=== PATIENT | male | born 1955 | race Caucasian/White ===

== ENCOUNTER 2016-07-20 11:00 | Inpatient (IN) | payer BC ==
[~2016-07-20 11:00] MED LIST: Lactated Ringers 1,000 ML IV SCH; Lidocaine 1%/Sod Bicarbonate in NS 8.4% 1 ML Syringe IV PRN; Sodium Chloride 0.9% 10 ML Syringe FLUSH PRN
[2016-07-20] MEDS ORDERED: fentaNYL 100 MCG/2 ML SDV ONE (11:25)
[2016-07-20] MEDS ORDERED: Midazolam 1 MG/ML 2 ML SDV ONE (11:25)
[2016-07-20] MEDS ORDERED: Sodium Chloride 0.9% 10 ML ONE (11:25)
[2016-07-20] MEDS ORDERED: Morphine PF 10 MG/10 ML SDV ONE (11:26)
--- NOTE | 2016-07-20 13:23 | PCM.PREANE ---
Preanesthetic Assessment - ANESTHESIA/TRANSFUSION/FAMILY HX Anesthesia/Transfusion History: No Prior Transfusion(s), Prior Anesthesia (no prob) Family History of Anesthesia Reaction: No - REVIEW OF SYSTEMS Constitutional: Reports: no symptoms, feeling ill (influenza a 3 weeks ago) MARKETING STRATEGY ANALYST: Reports: no symptoms Respiratory: Reports: no symptoms Cardiovascular: Reports: no symptoms GI: Reports: no symptoms Other: Reports: none - PHYSICAL ASSESSMENT O2 Sat by Pulse Oximetry: 94 RR: 16 Vital Signs: Last Vital Signs Temp 98.2 F 07/20/16 12:00 Pulse 58 L 07/20/16 12:00 Resp 16 07/20/16 12:00 BP 118/77 07/20/16 12:00 Pulse Ox 94 L 07/20/16 12:00 Height: 5 ft 10 in Weight: 100.698 kg NPO Status Date: 07/19/16 NPO Status Time: 21:00 ASA Class: 2 Mental Status: alert & oriented x3 Dentition: Reports: partial (on top) Thyro-Mental Finger Breadths: 3 Mouth Opening Finger Breadths: 3 ROM/Head Extension: full Respiratory Status: lungs clear to auscultation bilaterally, diminished breath sounds Cardiovascular Status: regular rate & rhythm, normal S1, S2, no murmur, blood pressure WNL - LAB Values: Laboratory Last Values MRSA (PCR) Negative 07/08/16 11:50 Lab values reviewed. [place] CRNa07/06/16 Hgb 15.2 Hct 43.3 Plt 299 BUN14 Cr.06 - ALLERGIES Allergies/Adverse Reactions: Allergies Allergy/AdvReac Type Severity Reaction Status Date / Time No Known Allergies Allergy Verified 07/17/16 12:39 - BLOOD Blood Available: No - ANESTHESIA PLAN Preop Beta Martha: No Anesthesia Type Planned: spinal - ACKNOWLEDGEMENTS Pt an appropriate candidate for the planned anesthesia: Yes Alternatives and risks of anesthesia discussed w pt/guardian: Yes Pt/Guardian understands and agree with anesthesia plan: Yes PreAnesthesia Questionnaire HEENT History: Reports: Hard of hearing, Sinusitis (a few weeks ago with the flu ) Other HEENT History: wears hearing aids and glasses Cardiovascular History: Reports: None Respiratory History: Reports: None Gastrointestinal History: Reports: None Genitourinary History: Reports: None Musculoskeletal History: Reports: Other (see below) Other Musculoskeletal History: Clavicle fracture Neurological History: Reports: None Psychiatric History: Reports: None Endocrine/Metabolic History: Reports: Vitamin D deficiency Hematologic History: Reports: None Immunologic History: Reports: None Oncologic (Cancer) History: Reports: None Dermatologic History: Reports: None - Infectious Disease History Infectious Disease History: Reports: None - Past Surgical History Head Surgeries/Procedures: HEENT Surgical History: Reports: None Cardiovascular Surgical History: Reports: None Respiratory Surgical History: Reports: None GI Surgical History: Reports: None Male Surgical History: Reports: None Endocrine Surgical History: Reports: None Neurological Surgical History: Reports: Lumbar spine Musculoskeletal Surgical History: Reports: Other (see below) Other Musculoskeletal Surgeries/Procedures:: Clavicle Repair Oncologic Surgical History: Reports: None Dermatological Surgical History: Reports: None - SUBSTANCE USE Smoking Status *Q: Former Smoker (quit 1985) Tobacco Use Within Last Twelve Months: No Second Hand Smoke Exposure: No Days Per Week of Alcohol Use: 2 Number of Drinks Per Day: 5 Total Drinks Per Week: 10 Date of Last Drink: 07/14/16 Recreational Drug Use History: No - HOME MEDS Home Medications: Home Meds Ergocalciferol (Vitamin D2) [Vitamin D2] 50,000 unit PO ASDIRECTED 07/17/16 [ History] - CURRENT (IN HOUSE) MEDS Current Meds: Current Medications Morphine Sulfate 8 mg/Epinephrine HCl 0.3 mg/Cefuroxime Sodium 750 mg/Ketorolac Tromethamine 30 mg/Sodium Chloride 27.9 ml 0 mg .XX ONETIME ONE Stop: 07/20/16 13:31 Lactated Ringer's (Ringers, Lactated) 1,000 mls @ 125 mls/hr IV ASDIRECTED [facility] Last Admin: 07/20/16 12:30 Dose: 125 mls/hr Lidocaine/Sodium Bicarbonate (Buffered Lidocaine 1% In Ns 8.4%) 0.25 ml IV ONETIME PRN PRN Reason: Prior to IV Start Last Admin: 07/20/16 12:29 Dose: 0.25 ml Sodium Chloride (Saline Flush) 10 ml FLUSH ASDIRECTED PRN PRN Reason: Keep Vein Open Discontinued Medications Cefazolin Sodium (Ancef) Confirm Administered Dose 2 gm .ROUTE .STK-MED ONE Stop: 07/20/16 11:26 Fentanyl (Sublimaze) Confirm Administered Dose 100 mcg .ROUTE .STK-MED ONE Stop: 07/20/16 11:26 Sodium Chloride (Normal Saline) Confirm Administered Dose 10 mls @ as directed .ROUTE .STK-MED ONE Stop: 07/20/16 11:26 Midazolam HCl (Versed 1 Mg/Ml) Confirm Administered Dose 2 mg .ROUTE .STK-MED ONE Stop: 07/20/16 11:26 Morphine Sulfate (Duramorph Pf) Confirm Administered Dose 10 mg .ROUTE .STK-MED ONE Stop: 07/20/16 11:27
[2016-07-20] MEDS ORDERED: ceFAZolin 1 GM Vial ONE (13:41)
[2016-07-20] MEDS ORDERED: Propofol 200 MG/20 ML SDV ONE ×2 (14:55→15:18)
[2016-07-20] MEDS: Iodine/Sodium Iodide 2% Tincture 30 ML Bottle ONE ×2 (15:23→15:58)
[2016-07-20] MEDS: Bupivacaine 0.25% 30 ML SDV ONE ×2 (15:23→16:06)
[2016-07-20] MEDS: ceFAZolin 1 GM Vial ONE ×2 (15:23→16:02)
[2016-07-20] MEDS: Morphine 8 MG, EPINEPHrine 0.3 MG, Cefuroxime 750 MG, Ketorolac 30 MG, Sodium Chloride ... ONE ×10 (15:24→16:05)
[2016-07-20] MEDS ORDERED: diphenhydrAMINE 50 MG/ML SDV IVPUSH PRN (15:49)
[2016-07-20] MEDS ORDERED: fentaNYL 100 MCG/2 ML SDV IVPUSH PRN (15:49)
[2016-07-20] MEDS ORDERED: Lactated Ringers 1,000 ML ONE ×2 (15:49→16:14)
[2016-07-20] MEDS ORDERED: Meperidine PF 50 MG/ML Syringe IVPUSH PRN (15:49)
[2016-07-20] MEDS ORDERED: Ondansetron 4 MG/2 ML SDV IVPUSH PRN (15:49)
[2016-07-20] MEDS ORDERED: Ondansetron 4 MG/2 ML SDV ONE (16:38)
--- NOTE | 2016-07-20 16:47 | PCM.POSTAN ---
POST ANESTHESIA ASSESSMENT - MENTAL STATUS Mental Status: alert - VITAL SIGNS Pulse Rate: 50 SaO2: 94 Resp Rate: 16 Blood Pressure: 114/68 Temperature: 36.1 C - RESPIRATORY Respiratory Status: respiratory rate WNL, airway patent, O2 saturation stable - CARDIOVASCULAR CV Status: pulse rate WNL, blood pressure stable - GASTROINTESTINAL GI Status: no symptoms - POST OP HYDRATION Hydration Status: adequate & stable
[2016-07-20] MEDS ORDERED: Cyclobenzaprine 10 MG Tab PO PRN (16:48)
[2016-07-20] MEDS ORDERED: Sennosides 8.6 MG Tab PO PRN (16:48)
[2016-07-20] MEDS ORDERED: Magnesium Hydroxide 400 MG/5 ML Susp 30 ML Cup PO PRN (16:48)
[2016-07-20] MEDS ORDERED: Naloxone 0.4 MG/ML SDV IVPUSH PRN (16:48)
[2016-07-20] MEDS ORDERED: oxyCODONE 5 MG Tab PO PRN (16:48)
[2016-07-20] MEDS ORDERED: Bisacodyl 5 MG Tab PO PRN (16:48)
[2016-07-20] MEDS ORDERED: Morphine 2 MG/ML Syringe IVPUSH PRN (16:48)
[2016-07-20] MEDS ORDERED: Pneumococcal Polyvalent-23 Vaccine 0.5 ML SDV IM ONE (18:12)
--- NOTE | 2016-07-20 19:13 | PCM.CONS ---
H&P History of Present Illness - General Date of Service: 07/20/16 Admit Problem/Dx: Admission Diagnosis/Problem Admission Diagnosis/Problem Osteoarthritis of knee Source of Information: Patient, Old records, Provider, RN notes reviewed History Limitations: Reports: Physical impairment - History of Present Illness Initial Comments - Free Text/Narative: This is a 61-year-old, white male, with past medical history of Hearing Loss, Backache, Obesity with BMI 31.9, OA/DJD and Obesity who underwent left total knee arthroplasty post operative day zero. Patient is doing relatively well. Currently, his pain is controlled. He denies any acute issues. Medicine was consulted for postoperative care. Left Knee Pain Score (Numeric/FACES): 0 - Related Data Allergies/Adverse Reactions: Allergies Allergy/AdvReac Type Severity Reaction Status Date / Time No Known Allergies Allergy Verified 07/17/16 12:39 Home Medications: Home Meds Ergocalciferol (Vitamin D2) [Vitamin D2] 50,000 unit PO ASDIRECTED 07/17/16 [ History] Past Medical History HEENT History: Reports: Hard of hearing, Sinusitis Other HEENT History: wears hearing aids and glasses Cardiovascular History: Reports: None Respiratory History: Reports: None Gastrointestinal History: Reports: None Genitourinary History: Reports: None Musculoskeletal History: Reports: Other (see below) Other Musculoskeletal History: Clavicle fracture Neurological History: Reports: None Psychiatric History: Reports: None Endocrine/Metabolic History: Reports: Vitamin D deficiency Hematologic History: Reports: None Immunologic History: Reports: None Oncologic (Cancer) History: Reports: None Dermatologic History: Reports: None - Infectious Disease History Infectious Disease History: Reports: Chicken pox, Influenza, Measles, Mumps - Past Surgical History HEENT Surgical History: Reports: None Cardiovascular Surgical History: Reports: None Respiratory Surgical History: Reports: None GI Surgical History: Reports: None Male Surgical History: Reports: None Endocrine Surgical History: Reports: None Neurological Surgical History: Reports: Lumbar spine Musculoskeletal Surgical History: Reports: Other (see below) Other Musculoskeletal Surgeries/Procedures:: Clavicle Repair, and ruptured a disc Oncologic Surgical History: Reports: None Dermatological Surgical History: Reports: None Social & Family History - Family History Family Medical History: Noncontributory - Tobacco Use Smoking Status *Q: Former Smoker Years of Tobacco use: 12 Packs/Tins Daily: 0.5 Used Tobacco, but Quit: Yes Month Tobacco Last Used: 1985 Second Hand Smoke Exposure: No - Caffeine Use Caffeine Use: Reports: Coffee Other Caffeine Use: couple - Alcohol Use Days Per Week of Alcohol Use: 2 Number of Drinks Per Day: 0 Total Drinks Per Week: 0 Date of Last Drink: 07/14/16 - Recreational Drug Use Recreational Drug Use: No H&P Review of Systems - Review of Systems: Review Of Systems: See Below General: Denies: fever, chills, malaise, weakness, fatigue HEENT: Reports: no symptoms Pulmonary: Denies: cough Cardiovascular: Denies: chest pain, palpitations, dyspnea on exertion, edema, lightheadedness, syncope Gastrointestinal: Denies: Abdominal pain, Nausea, Vomiting Genitourinary: Reports: no symptoms Musculoskeletal: Reports: no symptoms Skin: Denies: cyanosis, pruritis, rash, erythema Psychiatric: Denies: depression, anxiety, hallucinations Neurological: Reports: difficulty walking, gait disturbance. Denies: confusion Hematologic/Lymphatic: Reports: no symptoms Immunologic: Reports: no symptoms Exam - Exam Exam: See Below - Vital Signs Vital Signs: Last Vital Signs Temp 36.4 C 07/20/16 18:45 Pulse 56 L 07/20/16 18:45 Resp 16 07/20/16 18:45 BP 129/74 07/20/16 18:45 Pulse Ox 99 07/20/16 18:45 Weight: 100.698 kg - Exam General: alert, oriented, cooperative. No: mild distress HEENT: Conjunctiva clear, EACs clear, EOMI, Hearing intact, Mucosa moist & pink , Nares patent, Normal nasal septum, Posterior pharynx clear, PERRLA Neck: supple, trachea midline, 2+ carotid pulse wo bruit, full range of motion. No: JVD Lungs: Clear to auscultation, Normal respiratory effort Cardiovascular: regular rate, regular rhythm Abdomen: normal bowel sounds, soft. No: organomegaly (Male) Exam: Other (indwelling montano catheter) Rectal (Males) Exam: Deferred Back Exam: normal inspection, decreased range of motion Extremities: normal inspection, normal pulses. No: clubbing, cyanosis, calf tenderness, edema Peripheral Pulses: 2+: dorsalis pedis (L), dorsalis pedis (R) Skin: warm, dry, intact Neuro Extensive - Mental Status: oriented x3, normal cognition, memory intact Neuro Extensive - Motor, Sensory, Reflexes: abnormal gait. No: CN II-XII intact (fairly intact) Psychiatric: alert, normal affect, normal mood Consult PN Assessment/Plan POD#: 0 Procedures: Procedures C-REACTIVE PROTEIN (06/21/16) CHEST X-RAY 2VW FRONTAL&LATL (06/21/16) COMPLETE CBC W/AUTO DIFF WBC (06/21/16) COMPREHEN METABOLIC PANEL (06/21/16) CULTURE SCREEN ONLY (06/21/16) ELECTROCARDIOGRAM TRACING (06/21/16) EMERGENCY DEPT VISIT (06/21/16) HYDRATE IV INFUSION ADD-ON (06/21/16) HYDRATION IV INFUSION INIT (06/21/16) INFLUENZA ASSAY W/OPTIC (06/21/16) ROUTINE VENIPUNCTURE (06/21/16) STREP A AG IA (06/21/16) X-RAY EXAM OF WRIST (01/04/14) Problem List Initiated/Reviewed/Updated: Yes Plan: Assessment: Acute: Post-Operative Care State - Stable - Continue to monitor for hemodynamic instability S/p Left Total Knee Arthroplasty - Stable - DVT and Pain Management as per primary team Hx/o Chronic OA/DJD - Pain Management as per primary team Chronic: Hearing Loss Backache Obesity with BMI 31.9 Plan: He is clinically stable Routine AM labs Continue home meds PT/OT consult IS q2 awake Thank you for the opportunity to participate in the management of this patient. Requesting Provider: Dr. Arreola Date Consult Requested: 07/20/16 Reason for Consult: Post-Operative Care Patient History Reviewed: Yes Admission H&P Reviewed: Yes Consult Result/Summary: Stable
--- NOTE | 2016-07-20 19:15 | CR ---
Left knee: AP and lateral views of the left knee were obtained. Comparison: Previous left knee MRI of 01/14 11 is available. Knee prosthesis is seen. Components are aligned. Lucent line is seen within the fibular head believed to be artifact from overlying soft tissue air. Underlying bony structures appear to be intact. Soft tissue air and air within the joint is seen secondary to the surgical procedure. Impression: 1. Satisfactory postop radiographic appearance of recently placed left knee prosthesis. Diagnostic code #2
[2016-07-20] MEDS: Docusate Sodium 100 MG Cap PO SCH (21:21)
[2016-07-20] MEDS: Famotidine 20 MG Tab PO SCH (21:21)
[2016-07-20] MEDS: ceFAZolin 2 GM in Premix Bag 1 BAG IV SCH (21:22)
[2016-07-21] MEDS: ceFAZolin 2 GM in Premix Bag 1 BAG IV SCH ×2 (04:10→13:31)
[2016-07-21] MEDS: Multivitamins,Therapeutic Tab PO SCH (06:34)
[2016-07-21] MEDS: Acetaminophen/oxyCODONE 325-5 MG Tab PO PRN ×4 (06:34→19:10)
--- NOTE | 2016-07-21 06:52 | PCM.CONSN ---
- General Info Date of Service: 07/21/16 Admission Dx/Problem (Free Text): Admission Diagnosis/Problem Admission Diagnosis/Problem Osteoarthritis of knee Subjective Update: Follow Up Functional Status: Reports: pain controlled, tolerating diet, ambulating, urinating. Denies: new symptoms - Review of Systems General: Denies: fever, weakness, fatigue, malaise, chills HEENT: Reports: no symptoms Pulmonary: Denies: shortness of breath Cardiovascular: Denies: chest pain Gastrointestinal: Reports: Nausea, Vomiting. Denies: Abdominal pain Genitourinary: Reports: no symptoms Musculoskeletal: Reports: no symptoms Skin: Denies: bruising, pruritis, rash Neurological: Denies: confusion Psychiatric: Denies: depression, anxiety, hallucinations Systems Review Comment:: No overnight issues. He is nauseous and vomited x1. He has no other acute issues. - Patient Data Vitals - most recent: Last Vital Signs Temp 36.8 C 07/21/16 04:04 Pulse 56 L 07/21/16 04:04 Resp 15 07/21/16 04:04 BP 106/78 07/21/16 04:04 Pulse Ox 95 07/21/16 04:04 Weight - most recent: 104.19 kg I&O - last 24 hours: Intake & Output 07/20/16 07/20/16 07/21/16 14:59 22:59 06:59 Intake Total 320 1938 Output Total 550 1000 Balance -230 938 Med Orders - Current: Current Medications Bisacodyl (Dulcolax) 5 mg PO DAILY PRN PRN Reason: Constipation Cyclobenzaprine HCl (Flexeril) 10 mg PO TID PRN PRN Reason: Spasms Docusate Sodium (Colace) 100 mg PO BID [facility] Last Admin: 07/20/16 21:21 Dose: 100 mg Ergocalciferol (Vitamin D2) 50,000 units PO WeSa@0900 [facility] Famotidine (Pepcid) 20 mg PO Q12H [facility] Last Admin: 07/20/16 21:21 Dose: 20 mg Cefazolin Sodium/Dextrose 2 gm (/ Premix) 50 mls @ 100 mls/hr IV Q8H [facility] Stop: 07/21/16 13:29 Last Admin: 07/21/16 04:10 Dose: 100 mls/hr Magnesium Hydroxide (Milk Of Magnesia) 30 ml PO BID PRN PRN Reason: Constipation Morphine Sulfate (Morphine) 2 mg IVPUSH Q2H PRN PRN Reason: Breakthrough Pain Multivitamins (Thera) 1 each PO WITHBREAKFAST [facility] Last Admin: 07/21/16 06:34 Dose: 1 each Oxycodone HCl (Oxycodone) 5 mg PO Q6H PRN PRN Reason: Pain Oxycodone/Acetaminophen (Percocet 325-5 Mg) 1 - 2 tab PO Q4H PRN PRN Reason: Pain Last Admin: 07/21/16 06:34 Dose: 2 tab Rivaroxaban (Xarelto) 10 mg PO DAILY [facility] Senna (Senna) 8.6 mg PO BID PRN PRN Reason: Constipation Discontinued Medications Bupivacaine HCl (Marcaine 0.25%) Confirm Administered Dose 30 ml .ROUTE .STK- MED ONE Stop: 07/20/16 13:42 Last Admin: 07/20/16 16:06 Dose: 30 ml Cefazolin Sodium (Ancef) Confirm Administered Dose 2 gm .ROUTE .STK-MED ONE Stop: 07/20/16 11:26 Last Admin: 07/20/16 16:02 Dose: 2 gm Cefazolin Sodium (Ancef) Confirm Administered Dose 2 gm .ROUTE .STK-MED ONE Stop: 07/20/16 13:42 Morphine Sulfate 8 mg/Epinephrine HCl 0.3 mg/Cefuroxime Sodium 750 mg/Ketorolac Tromethamine 30 mg/Sodium Chloride 27.9 ml 0 mg .XX ONETIME ONE Stop: 07/20/16 13:31 Last Admin: 07/20/16 16:05 Dose: 788.3 mg Diphenhydramine HCl (Benadryl) 25 mg IVPUSH Q6H PRN PRN Reason: pruritis Stop: 07/20/16 20:00 Fentanyl (Sublimaze) Confirm Administered Dose 100 mcg .ROUTE .STK-MED ONE Stop: 07/20/16 11:26 Fentanyl (Sublimaze) 50 mcg IVPUSH Q5M PRN PRN Reason: Pain Stop: 07/20/16 20:00 Lactated Ringer's (Ringers, Lactated) 1,000 mls @ 125 mls/hr IV ASDIRECTED [facility] Stop: 07/20/16 23:00 Last Infusion: 07/20/16 20:30 Dose: Infused Sodium Chloride (Normal Saline) Confirm Administered Dose 10 mls @ as directed .ROUTE .STK-MED ONE Stop: 07/20/16 11:26 Lactated Ringer's (Ringers, Lactated) Confirm Administered Dose 1,000 mls @ as directed .ROUTE .STK-MED ONE Stop: 07/20/16 15:50 Lactated Ringer's (Ringers, Lactated) Confirm Administered Dose 1,000 mls @ as directed .ROUTE .STK-MED ONE Stop: 07/20/16 16:15 Iodine (Iodine 2% Mild Tincture) Confirm Administered Dose 30 ml .ROUTE .STK- MED ONE Stop: 07/20/16 13:42 Last Admin: 07/20/16 15:58 Dose: 18 ml Lidocaine/Sodium Bicarbonate (Buffered Lidocaine 1% In Ns 8.4%) 0.25 ml IV ONETIME PRN PRN Reason: Prior to IV Start Stop: 07/20/16 18:00 Last Admin: 07/20/16 12:29 Dose: 0.25 ml Meperidine HCl (Demerol) 12.5 mg IVPUSH ONETIME PRN PRN Reason: shivering Stop: 07/21/16 15:50 Midazolam HCl (Versed 1 Mg/Ml) Confirm Administered Dose 2 mg .ROUTE .STK-MED ONE Stop: 07/20/16 11:26 Morphine Sulfate (Duramorph Pf) Confirm Administered Dose 10 mg .ROUTE .STK-MED ONE Stop: 07/20/16 11:27 Naloxone HCl (Narcan) 0.1 mg IVPUSH Q5M PRN PRN Reason: Oversedation Stop: 07/20/16 17:04 Ondansetron HCl (Zofran) 4 mg IVPUSH ONETIME PRN PRN Reason: Nausea/Vomiting Stop: 07/20/16 20:00 Ondansetron HCl (Zofran) Confirm Administered Dose 4 mg .ROUTE .STK-MED ONE Stop: 07/20/16 16:39 Pneumococcal Polyvalent Vaccine (Pneumovax 23) 0.5 ml IM .ONCE ONE Stop: 07/20/16 18:13 Propofol (Diprivan 20 Ml) Confirm Administered Dose 200 mg .ROUTE .STK-MED ONE Stop: 07/20/16 14:56 Propofol (Diprivan 20 Ml) Confirm Administered Dose 200 mg .ROUTE .STK-MED ONE Stop: 07/20/16 15:19 Sodium Chloride (Saline Flush) 10 ml FLUSH ASDIRECTED PRN PRN Reason: Keep Vein Open Stop: 07/20/16 18:00 Tranexamic Acid (Cyklokapron) Confirm Administered Dose 1,000 mg .ROUTE .STK- MED ONE Stop: 07/20/16 13:42 Last Admin: 07/20/16 16:14 Dose: 1,000 mg - Exam General: alert, oriented, cooperative, no acute distress HEENT: Pupils equal, Pupils reactive, EOMI, Mucous membr. moist/pink Neck: supple, trachea midline, no JVD Lungs: Clear to auscultation, Normal respiratory effort Cardiovascular: regular rate, regular rhythm Abdomen: bowel sounds present, soft, no tenderness, no distension (Male) Exam: Deferred Back Exam: normal inspection, decreased range of motion Extremities: no edema, normal pulses, no tenderness/swelling, no clubbing, no cyanosis, no calf tenderness Peripheral Pulses: 2+: dorsalis pedis (L), dorsalis pedis (R) Skin: warm, dry, intact Wound/Incisions: healing well, dressing dry and intact, no drainage Neurological: no new focal deficit Psy/Mental Status: alert, normal affect, normal mood Consult PN Assessment/Plan POD#: 1 Procedures: Procedures C-REACTIVE PROTEIN (06/21/16) CHEST X-RAY 2VW FRONTAL&LATL (06/21/16) COMPLETE CBC W/AUTO DIFF WBC (06/21/16) COMPREHEN METABOLIC PANEL (06/21/16) CULTURE SCREEN ONLY (06/21/16) ELECTROCARDIOGRAM TRACING (06/21/16) EMERGENCY DEPT VISIT (06/21/16) HYDRATE IV INFUSION ADD-ON (06/21/16) HYDRATION IV INFUSION INIT (06/21/16) INFLUENZA ASSAY W/OPTIC (06/21/16) ROUTINE VENIPUNCTURE (06/21/16) STREP A AG IA (06/21/16) X-RAY EXAM OF WRIST (01/04/14) Problem List Initiated/Reviewed/Updated: Yes Plan: Assessment: Acute: Post-Operative Care State - Stable - Continue to monitor for hemodynamic instability S/p Left Total Knee Arthroplasty - Stable - DVT and Pain Management as per primary team Hx/o Chronic OA/DJD - Pain Management as per primary team Nausea and Vomiting - PRN anti-emesis Chronic: Hearing Loss Backache Obesity with BMI 31.9 Plan: He remains clinically stable Routine AM labs Continue home meds, PT/OT, and IS q2 awake If not improvement of emesis, we will add scopolamine patch x 1
[2016-07-21] MEDS: Docusate Sodium 100 MG Cap PO SCH ×2 (08:04→20:27)
[2016-07-21] MEDS: Famotidine 20 MG Tab PO SCH ×2 (08:04→21:29)
--- NOTE | 2016-07-21 08:17 | PCM48HPAN ---
Post Anesthesia Note - EVALUATION WITHIN 48HRS OF ANESTHETIC Vital Signs in Normal Range: Yes Patient Participated in Evaluation: Yes Respiratory Function Stable: Yes Airway Patent: Yes Cardiovascular Function Stable: Yes Hydration Status Stable: Yes Pain Control Satisfactory: Yes Nausea and Vomiting Control Satisfactory: Yes Mental Status Recovered: Yes
[2016-07-21] MEDS: Rivaroxaban 10 MG Tab PO SCH (08:58)
[2016-07-21] MEDS ORDERED: Ondansetron 4 MG/2 ML SDV IVPUSH PRN (09:56)
[2016-07-21] MEDS ORDERED: Rivaroxaban 10 MG Tab PO ONE (14:00)
--- NOTE | 2016-07-21 17:37 | PCM.SURGPN ---
- General Info Date of Service: 07/21/16 POD#: 1 Functional Status: Reports: pain controlled, tolerating diet, ambulating, urinating, other (Pt has had nausea, vomiting today.) - Patient Data Vitals - most recent: Last Vital Signs Temp 99.3 F 07/21/16 15:49 Pulse 73 07/21/16 15:49 Resp 17 07/21/16 15:49 BP 122/59 L 07/21/16 15:49 Pulse Ox 92 L 07/21/16 15:49 Weight - most recent: 229 lb 11.2 oz I&O - last 24 hours: Intake & Output 07/21/16 07/21/16 07/21/16 06:59 14:59 22:59 Intake Total 1938 20 170 Output Total 1000 125 Balance 938 -105 170 Lab Results last 24 hrs: Laboratory Results - last 24 hr 07/21/16 07/21/16 Range/Units 06:15 06:15 WBC 10.02 H (4.23-9.07) K/mm3 RBC 4.03 L (4.63-6.08) M/mm3 Hgb 12.8 L (13.7-17.5) gm/L Hct 38.6 L (40.1-51.0) % MCV 95.8 H (79.0-92.2) fl MCH 31.8 (25.7-32.2) pg MCHC 33.2 (32.2-35.5) g/dl RDW Std Deviation 44.3 H (35.1-43.9) fL Plt Count 219 (163-337) K/mm3 MPV 12.1 (9.4-12.3) fl Neut % (Auto) 80.0 H (34.0-67.9) % Lymph % (Auto) 11.1 L (21.8-53.1) % [place] % (Auto) 7.8 (5.3-12.2) % Eos % (Auto) 0.7 L (0.8-7.0) Baso % (Auto) 0.2 (0.1-1.2) % Neut # 8.02 H (1.78-5.38) K/mm3 Lymph # 1.11 L (1.32-3.57) K/mm3 [place] # 0.78 (0.30-0.82) K/mm3 Eos # 0.07 (0.04-0.54) K/mm3 Baso # 0.02 (0.01-0.08) K/mm3 Sodium 137 (136-145) mEq/L Potassium 4.2 (3.5-5.1) mEq/L Chloride 102 (98-107) mEq/L Carbon Dioxide 26 (21-32) mEq/L Anion Gap 13.2 (5-15) BUN 14 (7-18) mg/dL Creatinine 0.8 (0.7-1.3) mg/dL Est Cr Clr Drug Dosing 98.85 mL/min Estimated GFR (MDRD) > 60 (>60) mL/min BUN/Creatinine Ratio 17.5 (14-18) Glucose 101 (80-115) mg/dL Calcium 8.6 (8.5-10.1) mg/dL Total Bilirubin 1.2 H (0.2-1.0) mg/dL AST 20 (15-37) U/L ALT 31 (16-63) U/L Alkaline Phosphatase 77 (46-116) U/L Total Protein 6.5 (6.4-8.2) g/dl Albumin 3.3 L (3.4-5.0) g/dl Globulin 3.2 gm/dL Albumin/Globulin Ratio 1.0 (1-2) Med Orders - Current: Current Medications Bisacodyl (Dulcolax) 5 mg PO DAILY PRN PRN Reason: Constipation Cyclobenzaprine HCl (Flexeril) 10 mg PO TID PRN PRN Reason: Spasms Docusate Sodium (Colace) 100 mg PO BID [facility] Last Admin: 07/21/16 08:04 Dose: 100 mg Ergocalciferol (Vitamin D2) 50,000 units PO WeSa@0900 [facility] Famotidine (Pepcid) 20 mg PO Q12H [facility] Last Admin: 07/21/16 08:04 Dose: 20 mg Magnesium Hydroxide (Milk Of Magnesia) 30 ml PO BID PRN PRN Reason: Constipation Morphine Sulfate (Morphine) 2 mg IVPUSH Q2H PRN PRN Reason: Breakthrough Pain Multivitamins (Thera) 1 each PO WITHBREAKFAST [facility] Last Admin: 07/21/16 06:34 Dose: 1 each Ondansetron HCl (Zofran) 4 mg IVPUSH Q4HR PRN PRN Reason: Nausea/Vomiting Last Admin: 07/21/16 10:10 Dose: 4 mg Oxycodone HCl (Oxycodone) 5 mg PO Q6H PRN PRN Reason: Pain Oxycodone/Acetaminophen (Percocet 325-5 Mg) 1 - 2 tab PO Q4H PRN PRN Reason: Pain Last Admin: 07/21/16 15:09 Dose: 2 tab Rivaroxaban (Xarelto) 10 mg PO DAILY [facility] Last Admin: 07/21/16 08:58 Dose: 10 mg Senna (Senna) 8.6 mg PO BID PRN PRN Reason: Constipation Discontinued Medications Bupivacaine HCl (Marcaine 0.25%) Confirm Administered Dose 30 ml .ROUTE .STK- MED ONE Stop: 07/20/16 13:42 Last Admin: 07/20/16 16:06 Dose: 30 ml Cefazolin Sodium (Ancef) Confirm Administered Dose 2 gm .ROUTE .STK-MED ONE Stop: 07/20/16 11:26 Last Admin: 07/20/16 16:02 Dose: 2 gm Cefazolin Sodium (Ancef) Confirm Administered Dose 2 gm .ROUTE .STK-MED ONE Stop: 07/20/16 13:42 Morphine Sulfate 8 mg/Epinephrine HCl 0.3 mg/Cefuroxime Sodium 750 mg/Ketorolac Tromethamine 30 mg/Sodium Chloride 27.9 ml 0 mg .XX ONETIME ONE Stop: 07/20/16 13:31 Last Admin: 07/20/16 16:05 Dose: 788.3 mg Diphenhydramine HCl (Benadryl) 25 mg IVPUSH Q6H PRN PRN Reason: pruritis Stop: 07/20/16 20:00 Fentanyl (Sublimaze) Confirm Administered Dose 100 mcg .ROUTE .STK-MED ONE Stop: 07/20/16 11:26 Fentanyl (Sublimaze) 50 mcg IVPUSH Q5M PRN PRN Reason: Pain Stop: 07/20/16 20:00 Lactated Ringer's (Ringers, Lactated) 1,000 mls @ 125 mls/hr IV ASDIRECTED [facility] Stop: 07/20/16 23:00 Last Infusion: 07/20/16 20:30 Dose: Infused Sodium Chloride (Normal Saline) Confirm Administered Dose 10 mls @ as directed .ROUTE .STK-MED ONE Stop: 07/20/16 11:26 Lactated Ringer's (Ringers, Lactated) Confirm Administered Dose 1,000 mls @ as directed .ROUTE .STK-MED ONE Stop: 07/20/16 15:50 Lactated Ringer's (Ringers, Lactated) Confirm Administered Dose 1,000 mls @ as directed .ROUTE .STK-MED ONE Stop: 07/20/16 16:15 Cefazolin Sodium/Dextrose 2 gm (/ Premix) 50 mls @ 100 mls/hr IV Q8H [facility] Stop: 07/21/16 13:29 Last Admin: 07/21/16 13:31 Dose: 100 mls/hr Iodine (Iodine 2% Mild Tincture) Confirm Administered Dose 30 ml .ROUTE .STK- MED ONE Stop: 07/20/16 13:42 Last Admin: 07/20/16 15:58 Dose: 18 ml Lidocaine/Sodium Bicarbonate (Buffered Lidocaine 1% In Ns 8.4%) 0.25 ml IV ONETIME PRN PRN Reason: Prior to IV Start Stop: 07/20/16 18:00 Last Admin: 07/20/16 12:29 Dose: 0.25 ml Meperidine HCl (Demerol) 12.5 mg IVPUSH ONETIME PRN PRN Reason: shivering Stop: 07/21/16 15:50 Midazolam HCl (Versed 1 Mg/Ml) Confirm Administered Dose 2 mg .ROUTE .STK-MED ONE Stop: 07/20/16 11:26 Morphine Sulfate (Duramorph Pf) Confirm Administered Dose 10 mg .ROUTE .STK-MED ONE Stop: 07/20/16 11:27 Naloxone HCl (Narcan) 0.1 mg IVPUSH Q5M PRN PRN Reason: Oversedation Stop: 07/20/16 17:04 Ondansetron HCl (Zofran) 4 mg IVPUSH ONETIME PRN PRN Reason: Nausea/Vomiting Stop: 07/20/16 20:00 Ondansetron HCl (Zofran) Confirm Administered Dose 4 mg .ROUTE .STK-MED ONE Stop: 07/20/16 16:39 Pneumococcal Polyvalent Vaccine (Pneumovax 23) 0.5 ml IM .ONCE ONE Stop: 07/20/16 18:13 Propofol (Diprivan 20 Ml) Confirm Administered Dose 200 mg .ROUTE .STK-MED ONE Stop: 07/20/16 14:56 Propofol (Diprivan 20 Ml) Confirm Administered Dose 200 mg .ROUTE .STK-MED ONE Stop: 07/20/16 15:19 Rivaroxaban (Xarelto) 10 mg PO ONETIME ONE Stop: 07/21/16 14:01 Last Admin: 07/21/16 13:31 Dose: 10 mg Sodium Chloride (Saline Flush) 10 ml FLUSH ASDIRECTED PRN PRN Reason: Keep Vein Open Stop: 07/20/16 18:00 Tranexamic Acid (Cyklokapron) Confirm Administered Dose 1,000 mg .ROUTE .STK- MED ONE Stop: 07/20/16 13:42 Last Admin: 07/20/16 16:14 Dose: 1,000 mg - Exam Wound/Incisions: dressing dry and intact General: alert, cooperative, no acute distress Lungs: Normal respiratory effort Extremities: normal pulses, no calf tenderness, other (NVS intact for BLE. Jennifer's negative.) - Problem List Review Problem List Initiated/Reviewed/Updated: Yes - My Orders Last 24 Hours: Active Orders 24 hr Category Date Time Status Patient Status [ADT] Routine ADT 07/20/16 16:48 Active Ambulate [RC] PER UNIT ROUTINE Care 07/20/16 16:48 Active Antiembolic Devices [RC] QSHIFT Care 07/20/16 17:01 Active May Shower [RC] ASDIRECTED Care 07/20/16 16:48 Active Notify Provider Consults [RC] ASDIRECTED Care 07/20/16 17:02 Active Oxygen Therapy [RC] PRN Care 07/20/16 16:48 Active RT Incentive Spirometry [RC] Q1HWA Care 07/20/16 16:49 Active Up to Chair [RC] ASDIRECTED Care 07/20/16 16:48 Active Urinary Catheter Removal [RC] Per Unit Routine Care 07/20/16 16:48 Active VTE/DVT Education [RC] 10 Care 07/20/16 17:01 Active Vital Signs [RC] 00,04,08,12,16,20 Care 07/20/16 16:48 Active Consult to Case Management [CONS] Routine Cons 07/20/16 16:48 Active Consult to Physician [CONS] Routine Cons 07/20/16 16:48 Active OT Evaluation and Treatment [CONS] Routine Cons 07/20/16 16:48 Active PT Evaluation and Treatment [CONS] Routine Cons 07/20/16 17:02 Active Regular Diet [DIET] Diet 07/20/16 Dinner Active Acetaminophen/oxyCODONE [Percocet 325-5 MG] Med 07/20/16 16:48 Active 1 - 2 tab PO Q4H PRN Bisacodyl [Dulcolax] Med 07/20/16 16:48 Active 5 mg PO DAILY PRN Cyclobenzaprine [Flexeril] Med 07/20/16 16:48 Active 10 mg PO TID PRN Docusate Sodium [Colace] Med 07/20/16 21:00 Active 100 mg PO BID Ergocalciferol (Vitamin D2) [Vitamin D2] Med 07/22/16 09:00 Active 50,000 units PO WeSa@0900 Famotidine [Pepcid] Med 07/20/16 21:00 Active 20 mg PO Q12H Magnesium Hydroxide [Milk of Magnesia] Med 07/20/16 16:48 Active 30 ml PO BID PRN Morphine Med 07/20/16 16:48 Active 2 mg IVPUSH Q2H PRN Multivitamins,Therapeutic [Thera] Med 07/21/16 07:00 Active 1 each PO WITHBREAKFAST Ondansetron [Zofran] Med 07/21/16 09:56 Active 4 mg IVPUSH Q4HR PRN Rivaroxaban [Xarelto] Med 07/21/16 09:00 Active 10 mg PO DAILY Sennosides [Senna] Med 07/20/16 16:48 Active 8.6 mg PO BID PRN oxyCODONE Med 07/20/16 16:48 Active 5 mg PO Q6H PRN Antiembolic Hose [OM.PC] Per Unit Routine Oth 07/20/16 17:01 Ordered DVT/VTE Prophylaxis Reflex [OM.PC] Routine Oth 07/20/16 16:48 Ordered Ice Therapy [OM.PC] Per Unit Routine Oth 07/20/16 16:49 Ordered Sequential Compression Device [OM.PC] Per Unit Routine Oth 07/20/16 17:03 Ordered Resuscitation Status Routine Resus Stat 07/20/16 16:48 Ordered Medication Orders Bisacodyl (Dulcolax) 5 mg PO DAILY PRN PRN Reason: Constipation Cyclobenzaprine HCl (Flexeril) 10 mg PO TID PRN PRN Reason: Spasms Docusate Sodium (Colace) 100 mg PO BID [facility] Last Admin: 07/21/16 08:04 Dose: 100 mg Admin: 07/20/16 21:21 Dose: 100 mg Ergocalciferol (Vitamin D2) 50,000 units PO WeSa@0900 [facility] Famotidine (Pepcid) 20 mg PO Q12H [facility] Last Admin: 07/21/16 08:04 Dose: 20 mg Admin: 07/20/16 21:21 Dose: 20 mg Magnesium Hydroxide (Milk Of Magnesia) 30 ml PO BID PRN PRN Reason: Constipation Morphine Sulfate (Morphine) 2 mg IVPUSH Q2H PRN PRN Reason: Breakthrough Pain Multivitamins (Thera) 1 each PO WITHBREAKFAST [facility] Last Admin: 07/21/16 06:34 Dose: 1 each Ondansetron HCl (Zofran) 4 mg IVPUSH Q4HR PRN PRN Reason: Nausea/Vomiting Last Admin: 07/21/16 10:10 Dose: 4 mg Oxycodone HCl (Oxycodone) 5 mg PO Q6H PRN PRN Reason: Pain Oxycodone/Acetaminophen (Percocet 325-5 Mg) 1 - 2 tab PO Q4H PRN PRN Reason: Pain Last Admin: 07/21/16 15:09 Dose: 2 tab Admin: 07/21/16 11:06 Dose: 2 tab Admin: 07/21/16 06:34 Dose: 2 tab Rivaroxaban (Xarelto) 10 mg PO DAILY [facility] Last Admin: 07/21/16 08:58 Dose: 10 mg Senna (Senna) 8.6 mg PO BID PRN PRN Reason: Constipation - Assessment Assessment (Free Text/Narrative):: POD#1 - left TKA - Plan Plan (Free Text/Narrative):: 1. The pt will remain in Hospital this evening for continued monitoring. 2. Medical management per Hospitalist service. 3. Xarelto, SCDs, TEDs, frequent mobility. 4. Hgb 12.8 today. 5. Likely d/c to home tomorrow.
[2016-07-22] MEDS: Multivitamins,Therapeutic Tab PO SCH (06:29)
[2016-07-22] MEDS: Acetaminophen/oxyCODONE 325-5 MG Tab PO PRN (07:39)
--- NOTE | 2016-07-22 08:42 | PCM.SURGPN ---
- General Info Date of Service: 07/22/16 POD#: 2 Functional Status: Reports: pain controlled, tolerating diet, ambulating, urinating. Denies: new symptoms - Review of Systems Musculoskeletal: Reports: other (The pt feels prepared for discharge.) - Patient Data Vitals - most recent: Last Vital Signs Temp 99.1 F 07/22/16 04:36 Pulse 85 07/22/16 04:36 Resp 14 07/22/16 04:36 BP 119/71 07/22/16 04:36 Pulse Ox 90 L 07/22/16 04:36 Weight - most recent: 228 lb 8 oz I&O - last 24 hours: Intake & Output 07/21/16 07/22/16 07/22/16 22:59 06:59 14:59 Intake Total 620 1400 Output Total 0 Balance 620 1400 Med Orders - Current: Current Medications Bisacodyl (Dulcolax) 5 mg PO DAILY PRN PRN Reason: Constipation Cyclobenzaprine HCl (Flexeril) 10 mg PO TID PRN PRN Reason: Spasms Docusate Sodium (Colace) 100 mg PO BID [facility] Last Admin: 07/21/16 20:27 Dose: 100 mg Ergocalciferol (Vitamin D2) 50,000 units PO WeSa@0900 [facility] Famotidine (Pepcid) 20 mg PO Q12H [facility] Last Admin: 07/21/16 21:29 Dose: 20 mg Magnesium Hydroxide (Milk Of Magnesia) 30 ml PO BID PRN PRN Reason: Constipation Morphine Sulfate (Morphine) 2 mg IVPUSH Q2H PRN PRN Reason: Breakthrough Pain Multivitamins (Thera) 1 each PO WITHBREAKFAST [facility] Last Admin: 07/22/16 06:29 Dose: 1 each Ondansetron HCl (Zofran) 4 mg IVPUSH Q4HR PRN PRN Reason: Nausea/Vomiting Last Admin: 07/21/16 10:10 Dose: 4 mg Oxycodone HCl (Oxycodone) 5 mg PO Q6H PRN PRN Reason: Pain Oxycodone/Acetaminophen (Percocet 325-5 Mg) 1 - 2 tab PO Q4H PRN PRN Reason: Pain Last Admin: 07/22/16 07:39 Dose: 2 tab Rivaroxaban (Xarelto) 10 mg PO DAILY [facility] Last Admin: 07/21/16 08:58 Dose: 10 mg Senna (Senna) 8.6 mg PO BID PRN PRN Reason: Constipation Discontinued Medications Bupivacaine HCl (Marcaine 0.25%) Confirm Administered Dose 30 ml .ROUTE .STK- MED ONE Stop: 07/20/16 13:42 Last Admin: 07/20/16 16:06 Dose: 30 ml Cefazolin Sodium (Ancef) Confirm Administered Dose 2 gm .ROUTE .STK-MED ONE Stop: 07/20/16 11:26 Last Admin: 07/20/16 16:02 Dose: 2 gm Cefazolin Sodium (Ancef) Confirm Administered Dose 2 gm .ROUTE .STK-MED ONE Stop: 07/20/16 13:42 Morphine Sulfate 8 mg/Epinephrine HCl 0.3 mg/Cefuroxime Sodium 750 mg/Ketorolac Tromethamine 30 mg/Sodium Chloride 27.9 ml 0 mg .XX ONETIME ONE Stop: 07/20/16 13:31 Last Admin: 07/20/16 16:05 Dose: 788.3 mg Diphenhydramine HCl (Benadryl) 25 mg IVPUSH Q6H PRN PRN Reason: pruritis Stop: 07/20/16 20:00 Fentanyl (Sublimaze) Confirm Administered Dose 100 mcg .ROUTE .STK-MED ONE Stop: 07/20/16 11:26 Fentanyl (Sublimaze) 50 mcg IVPUSH Q5M PRN PRN Reason: Pain Stop: 07/20/16 20:00 Lactated Ringer's (Ringers, Lactated) 1,000 mls @ 125 mls/hr IV ASDIRECTED [facility] Stop: 07/20/16 23:00 Last Infusion: 07/20/16 20:30 Dose: Infused Sodium Chloride (Normal Saline) Confirm Administered Dose 10 mls @ as directed .ROUTE .STK-MED ONE Stop: 07/20/16 11:26 Lactated Ringer's (Ringers, Lactated) Confirm Administered Dose 1,000 mls @ as directed .ROUTE .STK-MED ONE Stop: 07/20/16 15:50 Lactated Ringer's (Ringers, Lactated) Confirm Administered Dose 1,000 mls @ as directed .ROUTE .STK-MED ONE Stop: 07/20/16 16:15 Cefazolin Sodium/Dextrose 2 gm (/ Premix) 50 mls @ 100 mls/hr IV Q8H [facility] Stop: 07/21/16 13:29 Last Admin: 07/21/16 13:31 Dose: 100 mls/hr Iodine (Iodine 2% Mild Tincture) Confirm Administered Dose 30 ml .ROUTE .STK- MED ONE Stop: 07/20/16 13:42 Last Admin: 07/20/16 15:58 Dose: 18 ml Lidocaine/Sodium Bicarbonate (Buffered Lidocaine 1% In Ns 8.4%) 0.25 ml IV ONETIME PRN PRN Reason: Prior to IV Start Stop: 07/20/16 18:00 Last Admin: 07/20/16 12:29 Dose: 0.25 ml Meperidine HCl (Demerol) 12.5 mg IVPUSH ONETIME PRN PRN Reason: shivering Stop: 07/21/16 15:50 Midazolam HCl (Versed 1 Mg/Ml) Confirm Administered Dose 2 mg .ROUTE .STK-MED ONE Stop: 07/20/16 11:26 Morphine Sulfate (Duramorph Pf) Confirm Administered Dose 10 mg .ROUTE .STK-MED ONE Stop: 07/20/16 11:27 Naloxone HCl (Narcan) 0.1 mg IVPUSH Q5M PRN PRN Reason: Oversedation Stop: 07/20/16 17:04 Ondansetron HCl (Zofran) 4 mg IVPUSH ONETIME PRN PRN Reason: Nausea/Vomiting Stop: 07/20/16 20:00 Ondansetron HCl (Zofran) Confirm Administered Dose 4 mg .ROUTE .STK-MED ONE Stop: 07/20/16 16:39 Pneumococcal Polyvalent Vaccine (Pneumovax 23) 0.5 ml IM .ONCE ONE Stop: 07/20/16 18:13 Propofol (Diprivan 20 Ml) Confirm Administered Dose 200 mg .ROUTE .STK-MED ONE Stop: 07/20/16 14:56 Propofol (Diprivan 20 Ml) Confirm Administered Dose 200 mg .ROUTE .STK-MED ONE Stop: 07/20/16 15:19 Rivaroxaban (Xarelto) 10 mg PO ONETIME ONE Stop: 07/21/16 14:01 Last Admin: 07/21/16 13:31 Dose: 10 mg Sodium Chloride (Saline Flush) 10 ml FLUSH ASDIRECTED PRN PRN Reason: Keep Vein Open Stop: 07/20/16 18:00 Tranexamic Acid (Cyklokapron) Confirm Administered Dose 1,000 mg .ROUTE .STK- MED ONE Stop: 07/20/16 13:42 Last Admin: 07/20/16 16:14 Dose: 1,000 mg - Exam Wound/Incisions: dressing dry and intact General: alert, cooperative, no acute distress Lungs: Normal respiratory effort Extremities: normal pulses, no calf tenderness, other (NVS intact for BLE. Jennifer's negative.) - Problem List Review Problem List Initiated/Reviewed/Updated: Yes - My Orders Last 24 Hours: Active Orders 24 hr Category Date Time Status Ready for Discharge [RC] PER UNIT ROUTINE Care 07/22/16 08:40 Ordered Ergocalciferol (Vitamin D2) [Vitamin D2] Med 07/22/16 09:00 Active 50,000 units PO WeSa@0900 Ondansetron [Zofran] Med 07/21/16 09:56 Active 4 mg IVPUSH Q4HR PRN Rivaroxaban [Xarelto] Med 07/21/16 09:00 Active 10 mg PO DAILY Medication Orders Bisacodyl (Dulcolax) 5 mg PO DAILY PRN PRN Reason: Constipation Cyclobenzaprine HCl (Flexeril) 10 mg PO TID PRN PRN Reason: Spasms Docusate Sodium (Colace) 100 mg PO BID [facility] Last Admin: 07/21/16 20:27 Dose: 100 mg Admin: 07/21/16 08:04 Dose: 100 mg Admin: 07/20/16 21:21 Dose: 100 mg Ergocalciferol (Vitamin D2) 50,000 units PO WeSa@0900 [facility] Famotidine (Pepcid) 20 mg PO Q12H [facility] Last Admin: 07/21/16 21:29 Dose: 20 mg Admin: 07/21/16 08:04 Dose: 20 mg Admin: 07/20/16 21:21 Dose: 20 mg Magnesium Hydroxide (Milk Of Magnesia) 30 ml PO BID PRN PRN Reason: Constipation Morphine Sulfate (Morphine) 2 mg IVPUSH Q2H PRN PRN Reason: Breakthrough Pain Multivitamins (Thera) 1 each PO WITHBREAKFAST [facility] Last Admin: 07/22/16 06:29 Dose: 1 each Admin: 07/21/16 06:34 Dose: 1 each Ondansetron HCl (Zofran) 4 mg IVPUSH Q4HR PRN PRN Reason: Nausea/Vomiting Last Admin: 07/21/16 10:10 Dose: 4 mg Oxycodone HCl (Oxycodone) 5 mg PO Q6H PRN PRN Reason: Pain Oxycodone/Acetaminophen (Percocet 325-5 Mg) 1 - 2 tab PO Q4H PRN PRN Reason: Pain Last Admin: 07/22/16 07:39 Dose: 2 tab Admin: 07/21/16 19:10 Dose: 1 tab Admin: 07/21/16 15:09 Dose: 2 tab Admin: 07/21/16 11:06 Dose: 2 tab Admin: 07/21/16 06:34 Dose: 2 tab Rivaroxaban (Xarelto) 10 mg PO DAILY [facility] Last Admin: 07/21/16 08:58 Dose: 10 mg Senna (Senna) 8.6 mg PO BID PRN PRN Reason: Constipation - Assessment Assessment (Free Text/Narrative):: POD#2 - left TKA - Plan Plan (Free Text/Narrative):: 1. Discharge to home today. 2. Xarelto, frequent mobility. 3. Outpatient P.T. Dr. Arreola evaluated the pt today.
[2016-07-22] MEDS ORDERED: Ergocalciferol (Vitamin D2) 50,000 Unit Cap PO SCH (09:00)
[2016-07-22] MEDS: Docusate Sodium 100 MG Cap PO SCH (09:51)
[2016-07-22] MEDS: Famotidine 20 MG Tab PO SCH (09:52)
[2016-07-22] MEDS: Rivaroxaban 10 MG Tab PO SCH (09:53)
[2016-07-22 11:22] VITALS: BP 115/80
--- NOTE | 2016-07-24 07:05 | PCM.DCSUM1 ---
Discharge Summary - Hospital Course Brief History: Ken is a 61 yo male who underwent left TKA with Dr. Arreola on . The procedure was completed under spinal anesthesia. The pt tolerated the procedure well and was admitted to the Medical-Surgical Unit. Medical management was provided by the Hospitalist service. The pt's Hospital course was remarkable for post-operative nausea and vomiting which slowed his progression with therapy. The pt's Hgb on POD#1 was 12.8. On POD#1, Xarelto was initiated for VTE prophylaxis and the pt was prescribed a 14-day course. A Mepilex dressing was placed at the incision site at the time of surgery and remained clean and dry. The pt participated in P.T. and O.T. The pt was allowed to WBAT and used a FWW for mobility. On POD#2, the pt was deemed appropriate to discharge to home with his . - Discharge Data Discharge Date: 07/22/16 Discharge Disposition: Home, Self-Care 01 Condition: Good - Patient Summary/Data Consults: Consultations 07/20/16 16:48 Consult to Case Management [CONS] Routine Consult to Physician [CONS] Routine OT Evaluation and Treatment [CONS] Routine 07/20/16 17:02 PT Evaluation and Treatment [CONS] Routine - Patient Instructions Diet: Usual Diet as Tolerated Activity: Apply Ice, As Tolerated, Elevate Extremity, Full Weight Bearing Driving: Do Not Drive Showering/Bathing: May Shower Wound/Incision Care: Keep Operative Site/Wound Site Clean and Dry, Do NOT Change Dressing Notify Provider of: Fever, Increased Pain, Swelling and Redness, Drainage, Nausea and/or Vomiting Other/Special Instructions: Please get up and moving around every hour while awake. Please use your walker and have help as needed. Take the blood thinner medication - Xarelto - daily. Do the exercises you were taught in the Hospital. Schedule for P.T. Use the pain medication as needed. The medication may cause drowsiness and constipation. Contact your primary care provider for instructions if you are constipated. You may use a stool softener like docusate sodium or Colace 100mg twice daily and/or a laxative like polyethylene glycol or Miralax daily for constipation. Use the ice machine often. Elevate the limb to decrease swelling. Keep the Mepilex dressing in place until follow-up at the Clinic. Notify the Clinic if the dressing is saturated. Wear the VENICE hose during the day and you may remove these at night. Schedule an appointment with your primary care provider for 'routine post-op care'. Call the Clinic with questions or concerns - [phone]. - Discharge Plan Prescriptions/Med Rec: Acetaminophen/oxyCODONE [Percocet 325-5 MG] 1 - 2 tab PO Q4H PRN #60 tablet PRN Reason: Pain Rivaroxaban [Xarelto] 10 mg PO DAILY #13 tablet Home Medications: Home Meds Ergocalciferol (Vitamin D2) [Vitamin D2] 50,000 unit PO ASDIRECTED 07/17/16 [ History] Acetaminophen/oxyCODONE [Percocet 325-5 MG] 1 - 2 tab PO Q4H PRN #60 tablet 06/09 [Rx] Bisacodyl [Dulcolax] 5 mg PO DAILY PRN #0 tablet 07/22/16 [Rx] Docusate Sodium [Colace] 100 mg PO BID cap 07/22/16 [Rx] Famotidine [Pepcid] 20 mg PO Q12H tablet 07/22/16 [Rx] Magnesium Hydroxide [Milk of Magnesia] 30 ml PO BID PRN #0 cup 07/22/16 [Rx] Multivitamins,Therapeutic [Thera] 1 each PO WITHBREAKFAST tablet 07/22/16 [Rx] Rivaroxaban [Xarelto] 10 mg PO DAILY #13 tablet 07/22/16 [Rx] Sennosides [Senna] 8.6 mg PO BID PRN #0 tablet 07/22/16 [Rx] Patient Handouts: Rivaroxaban oral tablets, Total Knee Replacement, Care After , [id number], Total Knee Replacement, [id number], Knee Rehabilitation Guidelines Following Surgery Referrals: Leny Ward PA-C [Physician Cloth Painter] - 07/28/16 2:40 am (Please follow-up with Dr. Ward on July 28 at 2:40pm. Please call and verify this appointment prior to the day. ) - Patient Data Vitals - Most Recent: Last Vital Signs Temp 98.2 F 07/22/16 10:03 Pulse 79 07/22/16 10:03 Resp 19 07/22/16 10:03 BP 115/80 07/22/16 10:03 Pulse Ox 92 L 07/22/16 10:03 Weight - Most Recent: 228 lb 8 oz Med Orders - Current: Current Medications Discontinued Medications Bisacodyl (Dulcolax) 5 mg PO DAILY PRN PRN Reason: Constipation Bupivacaine HCl (Marcaine 0.25%) Confirm Administered Dose 30 ml .ROUTE .STK- MED ONE Stop: 07/20/16 13:42 Last Admin: 07/20/16 16:06 Dose: 30 ml Cefazolin Sodium (Ancef) Confirm Administered Dose 2 gm .ROUTE .STK-MED ONE Stop: 07/20/16 11:26 Last Admin: 07/20/16 16:02 Dose: 2 gm Cefazolin Sodium (Ancef) Confirm Administered Dose 2 gm .ROUTE .STK-MED ONE Stop: 07/20/16 13:42 Morphine Sulfate 8 mg/Epinephrine HCl 0.3 mg/Cefuroxime Sodium 750 mg/Ketorolac Tromethamine 30 mg/Sodium Chloride 27.9 ml 0 mg .XX ONETIME ONE Stop: 07/20/16 13:31 Last Admin: 07/20/16 16:05 Dose: 788.3 mg Cyclobenzaprine HCl (Flexeril) 10 mg PO TID PRN PRN Reason: Spasms Diphenhydramine HCl (Benadryl) 25 mg IVPUSH Q6H PRN PRN Reason: pruritis Stop: 07/20/16 20:00 Docusate Sodium (Colace) 100 mg PO BID [facility] Last Admin: 07/22/16 09:51 Dose: 100 mg Ergocalciferol (Vitamin D2) 50,000 units PO WeSa@0900 [facility] Last Admin: 07/22/16 09:52 Dose: 50,000 units Famotidine (Pepcid) 20 mg PO Q12H [facility] Last Admin: 07/22/16 09:52 Dose: 20 mg Fentanyl (Sublimaze) Confirm Administered Dose 100 mcg .ROUTE .STK-MED ONE Stop: 07/20/16 11:26 Fentanyl (Sublimaze) 50 mcg IVPUSH Q5M PRN PRN Reason: Pain Stop: 07/20/16 20:00 Lactated Ringer's (Ringers, Lactated) 1,000 mls @ 125 mls/hr IV ASDIRECTED [facility] Stop: 07/20/16 23:00 Last Infusion: 07/20/16 20:30 Dose: Infused Sodium Chloride (Normal Saline) Confirm Administered Dose 10 mls @ as directed .ROUTE .ST-MED ONE Stop: 07/20/16 11:26 Lactated Ringer's (Ringers, Lactated) Confirm Administered Dose 1,000 mls @ as directed .ROUTE .ST-MED ONE Stop: 07/20/16 15:50 Lactated Ringer's (Ringers, Lactated) Confirm Administered Dose 1,000 mls @ as directed .ROUTE .[facility]-MED ONE Stop: 07/20/16 16:15 Cefazolin Sodium/Dextrose 2 gm (/ Premix) 50 mls @ 100 mls/hr IV Q8H [facility] Stop: 07/21/16 13:29 Last Admin: 07/21/16 13:31 Dose: 100 mls/hr Iodine (Iodine 2% Mild Tincture) Confirm Administered Dose 30 ml .ROUTE .[facility]- MED ONE Stop: 07/20/16 13:42 Last Admin: 07/20/16 15:58 Dose: 18 ml Lidocaine/Sodium Bicarbonate (Buffered Lidocaine 1% In Ns 8.4%) 0.25 ml IV ONETIME PRN PRN Reason: Prior to IV Start Stop: 07/20/16 18:00 Last Admin: 07/20/16 12:29 Dose: 0.25 ml Magnesium Hydroxide (Milk Of Magnesia) 30 ml PO BID PRN PRN Reason: Constipation Meperidine HCl (Demerol) 12.5 mg IVPUSH ONETIME PRN PRN Reason: shivering Stop: 07/21/16 15:50 Midazolam HCl (Versed 1 Mg/Ml) Confirm Administered Dose 2 mg .ROUTE .STK-MED ONE Stop: 07/20/16 11:26 Morphine Sulfate (Duramorph Pf) Confirm Administered Dose 10 mg .ROUTE .ST-MED ONE Stop: 07/20/16 11:27 Morphine Sulfate (Morphine) 2 mg IVPUSH Q2H PRN PRN Reason: Breakthrough Pain [facility]it[facility]ra) [facility] Last Admin: 07/22/16 06:29 Dose: 1 each Naloxone HCl (Narcan) 0.1 mg IVPUSH Q5M PRN PRN Reason: Oversedation Stop: 07/20/16 17:04 Ondansetron HCl (Zofran) 4 mg IVPUSH ONETIME PRN PRN Reason: Nausea/Vomiting Stop: 07/20/16 20:00 Ondansetron HCl (Zofran) Confirm Administered Dose 4 mg .ROUTE .STK-MED ONE Stop: 07/20/16 16:39 Ondansetron HCl (Zofran) 4 mg IVPUSH Q4HR PRN PRN Reason: Nausea/Vomiting Last Admin: 07/21/16 10:10 Dose: 4 mg Oxycodone HCl (Oxycodone) 5 mg PO Q6H PRN PRN Reason: Pain Oxycodone/Acetaminophen (Percocet 325-5 Mg) 1 - 2 tab PO Q4H PRN PRN Reason: Pain Last Admin: 07/22/16 07:39 Dose: 2 tab Pneumococcal Polyvalent Vaccine (Pneumovax 23) 0.5 ml IM .ONCE ONE Stop: 07/20/16 18:13 Propofol (Diprivan 20 Ml) Confirm Administered Dose 200 mg .ROUTE .STK-MED ONE Stop: 07/20/16 14:56 Propofol (Diprivan 20 Ml) Confirm Administered Dose 200 mg .ROUTE .STK-MED ONE Stop: 07/20/16 15:19 Rivaroxaban (Xarelto) 10 mg PO DAILY [facility] Last Admin: 07/22/16 09:53 Dose: 10 mg Rivaroxaban (Xarelto) 10 mg PO ONETIME ONE Stop: 07/21/16 14:01 Last Admin: 07/21/16 13:31 Dose: 10 mg Senna (Senna) 8.6 mg PO BID PRN PRN Reason: Constipation Sodium Chloride (Saline Flush) 10 ml FLUSH ASDIRECTED PRN PRN Reason: Keep Vein Open Stop: 07/20/16 18:00 Tranexamic Acid (Cyklokapron) Confirm Administered Dose 1,000 mg .ROUTE .STK- MED ONE Stop: 07/20/16 13:42 Last Admin: 07/20/16 16:14 Dose: 1,000 mg *Q Meaningful Use (DIS) - VTE *Q VTE Criteria *Q: - Stroke *Q Stroke Criteria *Q: - AMI *Q AMI Criteria *Q:
--- NOTE | 2016-07-30 08:33 | OR ---
DATE OF OPERATION: 07/20/2016 SURGEON: Joon Arreola MD OPERATION PERFORMED: Left total knee arthroplasty. PREOPERATIVE DIAGNOSIS: Left knee osteoarthrosis. POSTOPERATIVE DIAGNOSIS: Left knee osteoarthrosis. ANESTHESIA: Local MAC with spinal. ANESTHESIA PROVIDER: Sloan Stearns. COMM[facility] NURSE SUPERVISOR: Leny Ward PA-C and Randee Borges LPN. ESTIMATED BLOOD LOSS: 500 mL COMPLICATIONS: None. CONDITION: Stable. IMPLANTS: 1. [place] size 5 PS femur. 2. John size 5 [place] tibial base plate. 3. [place] size 5, 9 mm X3 PS polyethylene. 4. 32 x 10 mm asymmetric patella. DESCRIPTION OF PROCEDURE: The patient was identified in the preop holding area. Proper site was marked and identified by the surgeon. The patient was taken back to the operating theater. After adequate anesthesia, the patient's left lower extremity had a nonsterile tourniquet applied and it was then sterilely prepped and draped in the usual sterile fashion. OR timeout was performed. The patient received 2 g IV Ancef. At this time, left lower extremity was exsanguinated. Tourniquet was insufflated to 300 mmHg. Standard medial parapatellar incision was made. Medial parapatellar arthrotomy was created. Deep fibers of the MCL were raised and anterior fat pad was resected. At this time, attention was turned to the patella. Patella measured a 24, it was resected to a 14 for a 32 x 10 mm patella. Drill holes were then drilled and found to be in adequate position. The drill was then drilled in the distal femur and the intramedullary distal femoral cutting guide was then placed. 8 mm was resected off the distal femur and was found to be an adequate resection. Sizing guide was placed. It was found to be a size 5 PS femur that was shown on the implant record at the beginning of this dictation. The drill holes were drilled for the epicondylar axis using [place] line and epicondyles as reference. At this time, the 4-in- 1 cutting block was placed. An anterior posterior and anterior and posterior chamfer cuts were then completed. The correct size box cut was then placed and the box cut was completed and found to be an adequate resection. Attention was turned to the tibia. The posterior medial lateral retractors were placed. The extramedullary tibial guide was placed. It was placed in the old footprint of the ACL. It was aligned with the center of the ankle and 0 degrees of slope, 9 mm was then resected off the unaffected lateral side. There was found to be an acceptable reduction. At this time, posterior osteophytes were removed along with medial and lateral meniscus. A trial implant was placed with a correct sized tibia that was mentioned at the beginning of the dictation. A 9 mm trial spacer was placed and 9 mm X3 polyethylene was then placed. The patient's knee was brought through range of motion. The patella was tracking centrally and was stable to varus and valgus stress. Alignment was found to be roughly at 0 degrees. At this time, cement was mixed on the back table. The tibia was stamped and drilled in proper rotation. All cut surfaces were irrigated with pulse lavage irrigation with Ancef and then completely dried. Once this was completed, then the cement was ready. The universal tibial base plate was cemented in place. Next, the 5 PS femur cemented into place and the 9 mm trial spacer was placed and 9 mm X3 polyethylene was placed. The patient's knee was brought into full extension. Excess cement was removed. The patella was then cemented in place at this time. Tourniquet was deflated. One liter dilute Betadine solution was irrigated through the knee along with 3 L of pulse lavage irrigation with Ancef. Periarticular injection was then completed. The patient's knee was brought through a range of motion. Once the cement had time to set up and it was found to be stable to varus valgus stress, the patella was tracking centrally with full range of motion. At this time, a #2 barbed suture was used for closure of the medial parapatellar arthrotomy. Topical tranexamic acid was placed. 2-0 Vicryl was used subcutaneously, a running 3-0 Monocryl was used subcuticularly. The patient tolerated the procedure well and was sent to the PACU in stable condition. AURELIANO /[id number]
== END 2016-07-22 10:30 | disposition home or self-care (01) | DRG 302 ==
LOC: JD.MS 11:56
PROVIDERS: ADMIT Orthopaedic Surgery; ATTEND Orthopaedic Surgery
PROC: 0SRD0J9 Replacement of Left Knee Joint with Synthetic Substitute, Cemented, Open Approach (ICD-10-PCS; principal; 2016-07-20)
DX: M17.12 Unilateral primary osteoarthritis, left knee (principal); H91.93 Unspecified hearing loss, bilateral; E55.9 Vitamin D deficiency, unspecified; Z87.891 Personal history of nicotine dependence; M19.90 Unspecified osteoarthritis, unspecified site; M54.9 Dorsalgia, unspecified; E66.9 Obesity, unspecified; Z68.31 Body mass index [BMI] 31.0-31.9, adult
CPT/HCPCS: 01402; 36415; 73560-26-LT; 73560-LT; 80053; 85025; 87641; 94762; 97110-GP; 97116-GP; 97161-GP; 97165-GO; 97535-GO; 99232; A9270-GY; C1713; C1776; J0171; J0690; J0697; J1885; J2250; J2270; J2405; J2704; J3010; J3490; J7120

== ENCOUNTER 2020-03-25 06:53 | Inpatient (IN) | payer MEDICARE, OTHER ==
[2020-03-25] MEDS ORDERED: Adenosine 6 MG/2 ML SDV IVPUSH ONE ×2 (07:00→09:01)
[2020-03-25] MEDS ORDERED: Adenosine 6 MG/2 ML SDV ONE (07:05)
[2020-03-25] MEDS ORDERED: Adenosine 12 MG/4 ML SDV ONE (07:06)
[2020-03-25] MEDS ORDERED: Sodium Chloride 0.9% 10 ML Syringe FLUSH PRN (07:13)
[2020-03-25] MEDS ORDERED: Sodium Chloride 0.9% 1,000 ML IV SCH ×2 (07:15→09:30)
--- NOTE | 2020-03-25 07:41 | EDM.PDOC ---
ED HPI GENERAL MEDICAL PROBLEM - General Chief Complaint: Abdominal Pain Stated Complaint: ABD PAIN,FEVER, COUGH AND SOB Time Seen by Provider: 03/25/20 07:01 Source of Information: Reports: Patient History Limitations: Reports: No Limitations - History of Present Illness INITIAL COMMENTS - FREE TEXT/NARRATIVE: The patient presents because has not felt well for about a week. He has a fever, chills, cough, chest tightness, shortness of breath and abdominal pain. This all started last week. When he came back his heart rate was in the 180s. He has never had this happen before. He has no medical problems such as heart disease, hypertension, hypercholesterolemia, or diabetes. He did not notice that his heart was beating that fast. Onset: Gradual Duration: Week(s): Location: Reports: Chest, Abdomen Quality: Reports: Other (tightness) Severity: Moderate Improves with: Reports: None Worsens with: Reports: None Associated Symptoms: Reports: Chest Pain, Cough, Fever/Chills, Shortness of Breath. Denies: Confusion, Headaches, Nausea/Vomiting Chest Pain Score (Numeric/FACES): 7 Abdomen Pain Score (Numeric/FACES): 7 - Related Data Allergies Allergy/AdvReac Type Severity Reaction Status Date / Time No Known Allergies Allergy Verified 03/25/20 07:19 Past Medical History HEENT History: Reports: Hard of Hearing, Impaired Vision, Sinusitis Other HEENT History: wears eyeglasses. Cardiovascular History: Reports: None Respiratory History: Reports: None Gastrointestinal History: Reports: None Genitourinary History: Reports: Prostate Disorder, Other (See Below) Other Genitourinary History: states had prostate issues but subsided--non-cancerous nodules removed. Musculoskeletal History: Reports: Back Pain, Chronic Other Musculoskeletal History: Clavicle fracture Neurological History: Reports: Concussion Psychiatric History: Reports: None Endocrine/Metabolic History: Reports: Vitamin D Deficiency Hematologic History: Reports: None Immunologic History: Reports: None Oncologic (Cancer) History: Reports: None Dermatologic History: Reports: None - Infectious Disease History Infectious Disease History: Reports: Chicken Pox, Measles, Mumps - Past Surgical History Respiratory Surgical History: Reports: None Neurological Surgical History: Reports: Lumbar Spine Musculoskeletal Surgical History: Reports: Knee Replacement, Shoulder Surgery, Other (See Below) Other Musculoskeletal Surgeries/Procedures:: back surgery. Social & Family History - Family History Family Medical History: Noncontributory - Tobacco Use Tobacco Use Status *Q: Never Tobacco User Second Hand Smoke Exposure: No - Caffeine Use Caffeine Use: Reports: Coffee Other Caffeine Use: couple - Recreational Drug Use Recreational Drug Use: No ED ROS GENERAL - Review of Systems Review Of Systems: See Below Constitutional: Reports: Fever, Chills, Malaise, Weakness, Fatigue HEENT: Reports: No Symptoms Respiratory: Reports: Shortness of Breath, Cough Cardiovascular: Reports: Chest Pain, Palpitations Endocrine: Reports: No Symptoms GI/Abdominal: Reports: Abdominal Pain. Denies: Nausea, Vomiting : Reports: No Symptoms Musculoskeletal: Reports: No Symptoms Skin: Reports: No Symptoms ED EXAM, GI/ABD - Physical Exam Exam: See Below Exam Limited By: No Limitations General Appearance: Alert, No Apparent Distress Ears: Normal External Exam Nose: Normal Inspection Head: Atraumatic, Normocephalic Neck: Normal Inspection Respiratory/Chest: No Respiratory Distress, Lungs Clear, Normal Breath Sounds Cardiovascular: No Edema, No Murmur, Tachycardia GI/Abdominal Exam: Soft, Non-Tender, No Organomegaly, No Mass Back Exam: Normal Inspection Extremities: Normal Inspection #1 Interpretation EKG Date: 03/25/20 Time: 07:01 Rhythm: Other (SVT) Rate (Beats/Min): 182 [place]: Normal P-Wave: Present QRS: Normal ST-T: Normal QT: Normal #2 Interpretation EKG Date: 03/25/20 Time: 07:07 Rhythm: NSR Rate (Beats/Min): 86 [place]: Normal P-Wave: Present QRS: Normal ST-T: Depressed (anterolateral leads) QT: Normal Course - Vital Signs Last Recorded V/S: Last Vital Signs Temp 98.8 F 03/25/20 06:55 Pulse 182 H 03/25/20 06:55 Resp 24 H 03/25/20 06:55 BP 95/74 03/25/20 06:55 Pulse Ox 96 03/25/20 06:55 - Orders/Labs/Meds Orders: Active Orders 24 hr Category Date Time Status Cardiac Monitoring [RC] . DIRECTED Care 03/25/20 07:13 Active EKG Documentation Completion [RC] STAT Care 03/25/20 07:15 Active Peripheral IV Care [RC] . DIRECTED Care 03/25/20 07:13 Active Chest 1V Frontal [CR] Stat Exams 03/25/20 07:15 Taken Sodium Chloride 0.9% @ 150 MLS/HR (1000ml Bag) Med 03/25/20 09:30 Ordered Sodium Chloride 0.9% [Normal Saline] 1,000 ml IV ASDIRECTED Sodium Chloride 0.9% [Normal Saline] 1,000 ml Med 03/25/20 07:15 Active IV .BOLUS Sodium Chloride 0.9% [Saline Flush] Med 03/25/20 07:13 Active 10 ml FLUSH ASDIRECTED PRN Peripheral IV Insertion Adult [OM.PC] Stat Oth 03/25/20 07:13 Ordered Medication Orders Sodium Chloride (Normal Saline) 1,000 mls @ 1,000 mls/hr IV .BOLUS MARLON Last Admin: 03/25/20 07:44 Dose: 1,000 mls/hr Documented by: MARIZOL Sodium Chloride (Normal Saline) 1,000 mls @ 150 mls/hr IV ASDIRECTED MARLON Sodium Chloride (Saline Flush) 10 ml FLUSH ASDIRECTED PRN PRN Reason: Keep Vein Open Last Admin: 03/25/20 07:05 Dose: 10 ml Documented by: MARIZOL Labs: Laboratory Tests 03/25/20 03/25/20 03/25/20 Range/Units 07:00 07:00 07:00 WBC 6.68 (4.23-9.07) K/mm3 RBC 5.05 (4.63-6.08) M/mm3 Hgb 15.9 D (13.7-17.5) gm/dl Hct 47.1 (40.1-51.0) % MCV 93.3 H (79.0-92.2) fl MCH 31.5 (25.7-32.2) pg MCHC 33.8 (32.2-35.5) g/dl RDW Std Deviation 41.3 (35.1-43.9) fL Plt Count 275 (163-337) K/mm3 MPV 11.4 (9.4-12.3) fl Neut % (Auto) 75.8 H (34.0-67.9) % Lymph % (Auto) 15.3 L (21.8-53.1) % [place] % (Auto) 8.7 (5.3-12.2) % Eos % (Auto) 0 L (0.8-7.0) Baso % (Auto) 0.1 (0.1-1.2) % Neut # (Auto) 5.06 (1.78-5.38) K/mm3 Lymph # (Auto) 1.02 L (1.32-3.57) K/mm3 [place] # (Auto) 0.58 (0.30-0.82) K/mm3 Eos # (Auto) 0.00 L (0.04-0.54) K/mm3 Baso # (Auto) 0.01 (0.01-0.08) K/mm3 PT 11.2 (9.7-12.0) SECONDS INR 1.05 APTT 28.2 (21.7-31.4) SECONDS D-Dimer, Quantitative 0.32 (0.19-0.50) mg/L Sodium 138 (136-145) mEq/L Potassium 4.2 (3.5-5.1) mEq/L Chloride 102 (98-107) mEq/L Carbon Dioxide 22 (21-32) mEq/L Anion Gap 18.2 H (5-15) BUN 25 H (7-18) mg/dL Creatinine 1.4 H (0.7-1.3) mg/dL Est Cr Clr Drug Dosing 54.32 mL/min Estimated GFR (MDRD) 51 (>60) mL/min BUN/Creatinine Ratio 17.9 (14-18) Glucose 133 H (80-115) mg/dL Lactic Acid (0.4-2.0) mmol/L Calcium 9.1 (8.5-10.1) mg/dL Magnesium 2.3 (1.8-2.4) mg/dl Ferritin (26-388) ng/ml Total Bilirubin 1.2 H (0.2-1.0) mg/dL AST 27 (15-37) U/L ALT 31 (16-63) U/L Alkaline Phosphatase 77 (46-116) U/L Lactate Dehydrogenase 210 (85-227) U/L Troponin I 0.348 H* (0.00-0.056) ng/mL C-Reactive Protein 5.6 H* (<1.0) mg/dL NT-Pro-B Natriuret Pep (0-125) pg/mL Total Protein 7.9 (6.4-8.2) g/dl Albumin 3.8 (3.4-5.0) g/dl Globulin 4.1 gm/dL Albumin/Globulin Ratio 0.9 L (1-2) TSH 3rd Generation 1.453 (0.358-3.74) uIU/mL SARS-CoV-2 RNA (JAVON) (NEGATIVE) 03/25/20 03/25/20 03/25/20 Range/Units 07:00 07:00 07:00 WBC (4.23-9.07) K/mm3 RBC (4.63-6.08) M/mm3 Hgb (13.7-17.5) gm/dl Hct (40.1-51.0) % MCV (79.0-92.2) fl MCH (25.7-32.2) pg MCHC (32.2-35.5) g/dl RDW Std Deviation (35.1-43.9) fL Plt Count (163-337) K/mm3 MPV (9.4-12.3) fl Neut % (Auto) (34.0-67.9) % Lymph % (Auto) (21.8-53.1) % [place] % (Auto) (5.3-12.2) % Eos % (Auto) (0.8-7.0) Baso % (Auto) (0.1-1.2) % Neut # (Auto) (1.78-5.38) K/mm3 Lymph # (Auto) (1.32-3.57) K/mm3 [place] # (Auto) (0.30-0.82) K/mm3 Eos # (Auto) (0.04-0.54) K/mm3 Baso # (Auto) (0.01-0.08) K/mm3 PT (9.7-12.0) SECONDS INR APTT (21.7-31.4) SECONDS D-Dimer, Quantitative (0.19-0.50) mg/L Sodium (136-145) mEq/L Potassium (3.5-5.1) mEq/L Chloride (98-107) mEq/L Carbon Dioxide (21-32) mEq/L Anion Gap (5-15) BUN (7-18) mg/dL Creatinine (0.7-1.3) mg/dL Est Cr Clr Drug Dosing mL/min Estimated GFR (MDRD) (>60) mL/min BUN/Creatinine Ratio (14-18) Glucose (80-115) mg/dL Lactic Acid 1.8 (0.4-2.0) mmol/L Calcium (8.5-10.1) mg/dL Magnesium (1.8-2.4) mg/dl Ferritin 1739 H (26-388) ng/ml Total Bilirubin (0.2-1.0) mg/dL AST (15-37) U/L ALT (16-63) U/L Alkaline Phosphatase (46-116) U/L Lactate Dehydrogenase (85-227) U/L Troponin I (0.00-0.056) ng/mL C-Reactive Protein (<1.0) mg/dL NT-Pro-B Natriuret Pep 2063 H (0-125) pg/mL Total Protein (6.4-8.2) g/dl Albumin (3.4-5.0) g/dl Globulin gm/dL Albumin/Globulin Ratio (1-2) TSH 3rd Generation (0.358-3.74) uIU/mL SARS-CoV-2 RNA (JAVON) (NEGATIVE) 03/25/20 Range/Units 07:50 WBC (4.23-9.07) K/mm3 RBC (4.63-6.08) M/mm3 Hgb (13.7-17.5) gm/dl Hct (40.1-51.0) % MCV (79.0-92.2) fl MCH (25.7-32.2) pg MCHC (32.2-35.5) g/dl RDW Std Deviation (35.1-43.9) fL Plt Count (163-337) K/mm3 MPV (9.4-12.3) fl Neut % (Auto) (34.0-67.9) % Lymph % (Auto) (21.8-53.1) % [place] % (Auto) (5.3-12.2) % Eos % (Auto) (0.8-7.0) Baso % (Auto) (0.1-1.2) % Neut # (Auto) (1.78-5.38) K/mm3 Lymph # (Auto) (1.32-3.57) K/mm3 [place] # (Auto) (0.30-0.82) K/mm3 Eos # (Auto) (0.04-0.54) K/mm3 Baso # (Auto) (0.01-0.08) K/mm3 PT (9.7-12.0) SECONDS INR APTT (21.7-31.4) SECONDS D-Dimer, Quantitative (0.19-0.50) mg/L Sodium (136-145) mEq/L Potassium (3.5-5.1) mEq/L Chloride (98-107) mEq/L Carbon Dioxide (21-32) mEq/L Anion Gap (5-15) BUN (7-18) mg/dL Creatinine (0.7-1.3) mg/dL Est Cr Clr Drug Dosing mL/min Estimated GFR (MDRD) (>60) mL/min BUN/Creatinine Ratio (14-18) Glucose (80-115) mg/dL Lactic Acid (0.4-2.0) mmol/L Calcium (8.5-10.1) mg/dL Magnesium (1.8-2.4) mg/dl Ferritin (26-388) ng/ml Total Bilirubin (0.2-1.0) mg/dL AST (15-37) U/L ALT (16-63) U/L Alkaline Phosphatase (46-116) U/L Lactate Dehydrogenase (85-227) U/L Troponin I (0.00-0.056) ng/mL C-Reactive Protein (<1.0) mg/dL NT-Pro-B Natriuret Pep (0-125) pg/mL Total Protein (6.4-8.2) g/dl Albumin (3.4-5.0) g/dl Globulin gm/dL Albumin/Globulin Ratio (1-2) TSH 3rd Generation (0.358-3.74) uIU/mL SARS-CoV-2 RNA (JAVON) Positive H (NEGATIVE) Meds: Medications Generic Name Dose Route Start Last Admin Trade Name Freq PRN Reason Stop Dose Admin Sodium Chloride 1,000 mls @ 1,000 mls/hr 03/25/20 07:15 03/25/20 07:44 Normal Saline IV 1,000 mls/hr .BOLUS MARLON Administration Sodium Chloride 1,000 mls @ 150 mls/hr 03/25/20 09:30 Normal Saline IV ASDIRECTED MARLON Sodium Chloride 10 ml 03/25/20 07:13 03/25/20 07:05 Saline Flush FLUSH 10 ml ASDIRECTED PRN Administration Keep Vein Open Discontinued Medications Generic Name Dose Route Start Last Admin Trade Name Arnav PRN Reason Stop Dose Admin Adenosine Confirm 03/25/20 07:05 03/25/20 07:47 Adenocard Administered 03/25/20 07:06 Not Given Dose 6 mg .ROUTE .STK-MED ONE Adenosine Confirm 03/25/20 07:06 03/25/20 07:47 Adenocard Administered 03/25/20 07:07 Not Given Dose 12 mg .ROUTE .STK-MED ONE Adenosine 6 mg 03/25/20 07:00 03/25/20 07:05 Adenocard IVPUSH 03/25/20 07:01 6 mg NOW ONE Administration Aspirin 324 mg 03/25/20 08:09 03/25/20 08:17 Aspirin PO 03/25/20 08:10 324 mg ONETIME ONE Administration - Re-Assessments/Exams Free Text/Narrative Re-Assessment/Exam: 03/25/20 07:43 I ordered an IV saline lock, EKG, adenosine 6mg IV fast push, CXR, labs and COVID 19. He converted with 6mg of adenosine. 03/25/20 08:53 His repeat EKG shows a NSR with slight ST depression in the anterolateral leads. His CXR shows abnormal chest radiograph with airspace disease in right upper lobe versus superior segment right lower lobe. Correlation for infection is recommended. His CBC looks good. His anion gap is elevated at 18.2. His creatinine is elevated at 1.4. His glucose is elevated at 133. His total bili is elevated at 1.2. His troponin is elevated at 0.348. His CRP is elevated at 5.6. His TSH is normal. His COVID 19 is positive. 03/25/20 09:17 I went to tell the patient the news and he went into SVT again. I gave him another 6mg IV and he converted. He will need to be admitted. I called Dr Hughes and he agreed to the admission. Departure - Departure Time of Disposition: :20 Disposition: Admitted As Inpatient 65 Condition: Serious Clinical Impression: COVID-19, Pneumonia due to COVID-19 virus, SVT (supraventricular tachycardia), Elevated troponin Myocarditis Qualifiers: Myocarditis type: infective Infective myocarditis organism: viral Chronicity: acute Qualified Code(s): I40.0 - Infective myocarditis - Discharge Information Referrals: PCP,None [Primary Care Provider] - Forms: ED Department Discharge Sepsis Event Note (ED) - Evaluation Sepsis Screening Result: No Definite Risk - Focused Exam Vital Signs: Vital Signs Temp Pulse Resp BP Pulse Ox 03/25/20 06:55 98.8 F 182 H 24 H 95/74 96 - My Orders Last 24 Hours: My Active Orders 03/25/20 07:13 Cardiac Monitoring [RC] . DIRECTED Peripheral IV Care [RC] . DIRECTED Sodium Chloride 0.9% [Saline Flush] 10 ml FLUSH ASDIRECTED PRN Peripheral IV Insertion Adult [OM.PC] Stat 03/25/20 07:15 EKG Documentation Completion [RC] STAT Chest 1V Frontal [CR] Stat Sodium Chloride 0.9% [Normal Saline] 1,000 ml IV .BOLUS 03/25/20 09:30 Sodium Chloride 0.9% @ 150 MLS/HR (1000ml Bag) Sodium Chloride 0.9% [Normal S elizabeth] 1,000 ml IV ASDIRECTED - Assessment/Plan Last 24 Hours: My Active Orders 03/25/20 07:13 Cardiac Monitoring [RC] . DIRECTED Peripheral IV Care [RC] . DIRECTED Sodium Chloride 0.9% [Saline Flush] 10 ml FLUSH ASDIRECTED PRN Peripheral IV Insertion Adult [OM.PC] Stat 03/25/20 07:15 EKG Documentation Completion [RC] STAT Chest 1V Frontal [CR] Stat Sodium Chloride 0.9% [Normal Saline] 1,000 ml IV .BOLUS 03/25/20 09:30 Sodium Chloride 0.9% @ 150 MLS/HR (1000ml Bag) Sodium Chloride 0.9% [Normal Saline] 1,000 ml IV ASDIRECTED
[2020-03-25] MEDS ORDERED: Aspirin 81 MG Tab.Chew PO ONE (08:09)
--- NOTE | 2020-03-25 10:29 | CR ---
PROCEDURE INFORMATION: Exam: XR Chest, 1 View Exam date and time: 03/25/2020 7:38 AM Age: 64 years old Clinical indication: Chest pain; Type not specified TECHNIQUE: Imaging protocol: XR of the chest Views: 1 view. COMPARISON: DX Chest 2V 06/21/2016 12:10 PM FINDINGS: Lungs: Airspace opacification in the right upper lobe versus superior segment right lower lobe. The lungs are otherwise normally expanded and clear. Pleural space: Normal. Heart/Mediastinum: Normal heart and cardiomediastinal silhouette. Vasculature: Normal pulmonary vessel caliber. Normal aorta. Bones/joints: The bones are intact. IMPRESSION: Abnormal chest radiograph with airspace disease in right upper lobe versus superior segment right lower lobe. Correlation for infection is recommended. Thank you for allowing us to participate in the care of your patient. Dictated and Authenticated by: Marshall Moreno MD 03/25/2020 9:14 AM Central Time ([place] & [place]) MTDD
[2020-03-25] MEDS ORDERED: FLU Vacc QV2020-21(65YR UP)/PF 240 MCG/0.7 ML Syringe IM ONE (12:15)
[2020-03-25] MEDS ORDERED: Adenosine 6 MG/2 ML SDV IVPUSH PRN ×2 (14:45→15:28)
[2020-03-25] MEDS ORDERED: Ondansetron 4 MG/2 ML SDV IV PRN (15:20)
--- NOTE | 2020-03-25 15:46 | PCM.HP.2 ---
H&P History of Present Illness - General Date of Service: 03/25/20 Admit Problem/Dx: Admission Diagnosis/Problem Admission Diagnosis/Problem Supraventricular tachycardia - History of Present Illness Initial Comments - Free Text/Narative: 64-year-old male with no significant history presents to the emergency depar tme with fever, chills, cough, chest tightness, shortness of breath, and abdominal pain. He states that he started having symptoms approximately 1 week ago. He presented to the hospital and his heart rate was in the 180s. He states he started getting worse last night and having more difficulty even walking short distances. He has never had any history before and did not know his heart rate was beating that fast. He complained of some chest tightness but no radiation to his arms, jaw, neck, no nausea, and no diaphoresis. When he presented to the emergency department he was given adenosine x2 which converted him to sinus rhythm. He then went into another episode of PSVT which required treatment with adenosine. Troponin was elevated at 0.348. proBNP was elevated at 2063. Renal function was decreased with estimated GFR of 51. TSH normal at 1.453. Covid was positive and his ferritin was 1739. CRP 5.6. Chest x-ray showed some mild right-sided congestion but no significant infi ltrate. Chest Pain Score (Numeric/FACES): 7 Abdomen Pain Score (Numeric/FACES): 7 - Related Data Allergies/Adverse Reactions: Allergies Allergy/AdvReac Type Severity Reaction Status Date / Time No Known Allergies Allergy Verified 03/25/20 13:08 Home Medications: Home Meds . [No Known Home Meds] 03/25/20 [History] Past Medical History HEENT History: Reports: Hard of Hearing, Impaired Vision, Sinusitis Other HEENT History: wears eyeglasses. Cardiovascular History: Reports: None Respiratory History: Reports: None Gastrointestinal History: Reports: None Genitourinary History: Reports: Prostate Disorder, Other (See Below) Other Genitourinary History: states had prostate issues but subsided--non-cancerous nodules removed. Musculoskeletal History: Reports: Back Pain, Chronic Other Musculoskeletal History: Clavicle fracture Neurological History: Reports: Concussion Psychiatric History: Reports: None Endocrine/Metabolic History: Reports: Vitamin D Deficiency Hematologic History: Reports: None Immunologic History: Reports: None Oncologic (Cancer) History: Reports: None Dermatologic History: Reports: None - Infectious Disease History Infectious Disease History: Reports: Chicken Pox, Measles, Mumps - Past Surgical History Respiratory Surgical History: Reports: None Neurological Surgical History: Reports: Lumbar Spine Musculoskeletal Surgical History: Reports: Knee Replacement, Shoulder Surgery, Other (See Below) Other Musculoskeletal Surgeries/Procedures:: back surgery. Social & Family History - Family History Family Medical History: Noncontributory - Tobacco Use Tobacco Use Status *Q: Never Tobacco User Second Hand Smoke Exposure: No - Caffeine Use Caffeine Use: Reports: Coffee Other Caffeine Use: couple - Recreational Drug Use Recreational Drug Use: No H&P Review of Systems - Review of Systems: Review Of Systems: Comprehensive ROS is negative, except as noted in HPI. Exam - Exam Exam: See Below - Vital Signs Vital Signs: Last Vital Signs Temp 98.1 F 03/25/20 12:03 Pulse 72 03/25/20 11:38 Resp 16 03/25/20 12:03 BP 113/77 03/25/20 12:03 Pulse Ox 93 L 03/25/20 12:03 Weight: 222 lb 3.2 oz - Exam Quality Assessment: No: Supplemental Oxygen General: Alert, Oriented, 4 HEENT: Conjunctiva Clear, Mucosa Moist & [place], Nares Patent, Normal Nasal Septum Lungs: Clear to Auscultation, Normal Respiratory Effort Cardiovascular: Regular Rate, Regular Rhythm GI/Abdominal Exam: Normal Bowel Sounds, Soft, Non-Tender, No Organomegaly, No Distention, No Abnormal Bruit, No Mass Back Exam: Normal Inspection Extremities: Normal Inspection, Normal Range of Motion, Non-Tender, No Pedal Edema, Normal Capillary Refill Skin: Warm, Dry, Intact Neuro Extensive - Mental Status: Alert, Oriented x3, Normal Mood/Affect, Normal Cognition, Memory Intact Psychiatric: Alert, Normal Affect, Normal Mood - Patient Data Lab Results Last 24 hrs: Laboratory Results - last 24 hr 03/25/20 03/25/20 03/25/20 Range/Units 07:00 07:00 07:00 WBC 6.68 (4.23-9.07) K/mm3 RBC 5.05 (4.63-6.08) M/mm3 Hgb 15.9 D (13.7-17.5) gm/dl Hct 47.1 (40.1-51.0) % MCV 93.3 H (79.0-92.2) fl MCH 31.5 (25.7-32.2) pg MCHC 33.8 (32.2-35.5) g/dl RDW Std Deviation 41.3 (35.1-43.9) fL Plt Count 275 (163-337) K/mm3 MPV 11.4 (9.4-12.3) fl Neut % (Auto) 75.8 H (34.0-67.9) % Lymph % (Auto) 15.3 L (21.8-53.1) % Perkins % (Auto) 8.7 (5.3-12.2) % Eos % (Auto) 0 L (0.8-7.0) Baso % (Auto) 0.1 (0.1-1.2) % Neut # (Auto) 5.06 (1.78-5.38) K/mm3 Lymph # (Auto) 1.02 L (1.32-3.57) K/mm3 Perkins # (Auto) 0.58 (0.30-0.82) K/mm3 Eos # (Auto) 0.00 L (0.04-0.54) K/mm3 Baso # (Auto) 0.01 (0.01-0.08) K/mm3 PT 11.2 (9.7-12.0) SECONDS INR 1.05 APTT 28.2 (21.7-31.4) SECONDS D-Dimer, Quantitative 0.32 (0.19-0.50) mg/L Sodium 138 (136-145) mEq/L Potassium 4.2 (3.5-5.1) mEq/L Chloride 102 (98-107) mEq/L Carbon Dioxide 22 (21-32) mEq/L Anion Gap 18.2 H (5-15) BUN 25 H (7-18) mg/dL Creatinine 1.4 H (0.7-1.3) mg/dL Est Cr Clr Drug Dosing 54.32 mL/min Estimated GFR (MDRD) 51 (>60) mL/min BUN/Creatinine Ratio 17.9 (14-18) Glucose 133 H (80-115) mg/dL Lactic Acid (0.4-2.0) mmol/L Calcium 9.1 (8.5-10.1) mg/dL Magnesium 2.3 (1.8-2.4) mg/dl Ferritin (26-388) ng/ml Total Bilirubin 1.2 H (0.2-1.0) mg/dL AST 27 (15-37) U/L ALT 31 (16-63) U/L Alkaline Phosphatase 77 (46-116) U/L Lactate Dehydrogenase 210 (85-227) U/L Troponin I 0.348 H* (0.00-0.056) ng/mL C-Reactive Protein 5.6 H* (<1.0) mg/dL NT-Pro-B Natriuret Pep (0-125) pg/mL Total Protein 7.9 (6.4-8.2) g/dl Albumin 3.8 (3.4-5.0) g/dl Globulin 4.1 gm/dL Albumin/Globulin Ratio 0.9 L (1-2) TSH 3rd Generation 1.453 (0.358-3.74) uIU/mL SARS-CoV-2 RNA (JAVON) (NEGATIVE) 03/25/20 03/25/20 03/25/20 Range/Units 07:00 07:00 07:00 WBC (4.23-9.07) K/mm3 RBC (4.63-6.08) M/mm3 Hgb (13.7-17.5) gm/dl Hct (40.1-51.0) % MCV (79.0-92.2) fl MCH (25.7-32.2) pg MCHC (32.2-35.5) g/dl RDW Std Deviation (35.1-43.9) fL Plt Count (163-337) K/mm3 MPV (9.4-12.3) fl Neut % (Auto) (34.0-67.9) % Lymph % (Auto) (21.8-53.1) % Perkins % (Auto) (5.3-12.2) % Eos % (Auto) (0.8-7.0) Baso % (Auto) (0.1-1.2) % Neut # (Auto) (1.78-5.38) K/mm3 Lymph # (Auto) (1.32-3.57) K/mm3 Perkins # (Auto) (0.30-0.82) K/mm3 Eos # (Auto) (0.04-0.54) K/mm3 Baso # (Auto) (0.01-0.08) K/mm3 PT (9.7-12.0) SECONDS INR APTT (21.7-31.4) SECONDS D-Dimer, Quantitative (0.19-0.50) mg/L Sodium (136-145) mEq/L Potassium (3.5-5.1) mEq/L Chloride (98-107) mEq/L Carbon Dioxide (21-32) mEq/L Anion Gap (5-15) BUN (7-18) mg/dL Creatinine (0.7-1.3) mg/dL Est Cr Clr Drug Dosing mL/min Estimated GFR (MDRD) (>60) mL/min BUN/Creatinine Ratio (14-18) Glucose (80-115) mg/dL Lactic Acid 1.8 (0.4-2.0) mmol/L Calcium (8.5-10.1) mg/dL Magnesium (1.8-2.4) mg/dl Ferritin 1739 H (26-388) ng/ml Total Bilirubin (0.2-1.0) mg/dL AST (15-37) U/L ALT (16-63) U/L Alkaline Phosphatase (46-116) U/L Lactate Dehydrogenase (85-227) U/L Troponin I (0.00-0.056) ng/mL C-Reactive Protein (<1.0) mg/dL NT-Pro-B Natriuret Pep 2063 H (0-125) pg/mL Total Protein (6.4-8.2) g/dl Albumin (3.4-5.0) g/dl Globulin gm/dL Albumin/Globulin Ratio (1-2) TSH 3rd Generation (0.358-3.74) uIU/mL SARS-CoV-2 RNA (JAVON) (NEGATIVE) 03/25/20 03/25/20 Range/Units 07:50 12:34 WBC (4.23-9.07) K/mm3 RBC (4.63-6.08) M/mm3 Hgb (13.7-17.5) gm/dl Hct (40.1-51.0) % MCV (79.0-92.2) fl MCH (25.7-32.2) pg MCHC (32.2-35.5) g/dl RDW Std Deviation (35.1-43.9) fL Plt Count (163-337) K/mm3 MPV (9.4-12.3) fl Neut % (Auto) (34.0-67.9) % Lymph % (Auto) (21.8-53.1) % Perkins % (Auto) (5.3-12.2) % Eos % (Auto) (0.8-7.0) Baso % (Auto) (0.1-1.2) % Neut # (Auto) (1.78-5.38) K/mm3 Lymph # (Auto) (1.32-3.57) K/mm3 Perkins # (Auto) (0.30-0.82) K/mm3 Eos # (Auto) (0.04-0.54) K/mm3 Baso # (Auto) (0.01-0.08) K/mm3 PT (9.7-12.0) SECONDS INR APTT (21.7-31.4) SECONDS D-Dimer, Quantitative (0.19-0.50) mg/L Sodium (136-145) mEq/L Potassium (3.5-5.1) mEq/L Chloride (98-107) mEq/L Carbon Dioxide (21-32) mEq/L Anion Gap (5-15) BUN (7-18) mg/dL Creatinine (0.7-1.3) mg/dL Est Cr Clr Drug Dosing mL/min Estimated GFR (MDRD) (>60) mL/min BUN/Creatinine Ratio (14-18) Glucose (80-115) mg/dL Lactic Acid (0.4-2.0) mmol/L Calcium (8.5-10.1) mg/dL Magnesium (1.8-2.4) mg/dl Ferritin (26-388) ng/ml Total Bilirubin (0.2-1.0) mg/dL AST (15-37) U/L ALT (16-63) U/L Alkaline Phosphatase (46-116) U/L Lactate Dehydrogenase (85-227) U/L Troponin I 0.418 H* (0.00-0.056) ng/mL C-Reactive Protein (<1.0) mg/dL NT-Pro-B Natriuret Pep (0-125) pg/mL Total Protein (6.4-8.2) g/dl Albumin (3.4-5.0) g/dl Globulin gm/dL Albumin/Globulin Ratio (1-2) TSH 3rd Generation (0.358-3.74) uIU/mL SARS-CoV-2 RNA (JAVON) Positive H (NEGATIVE) Result Diagrams: 03/26/20 05:56 03/26/20 05:56 #1 Interpretation EKG Date: 03/26/20 Time: 07:07 Rhythm: NSR Rate (Beats/Min): 86 Holden: Normal P-Wave: Present QRS: Normal ST-T: Depressed (Anterolateral leads) QT: Normal Comparison: NA - No Prior EKG Sepsis Event Note - Evaluation Sepsis Screening Result: No Definite Risk - Focused Exam Vital Signs: Vital Signs Temp Pulse Resp BP Pulse Ox 03/25/20 12:03 98.1 F 16 113/77 93 L 03/25/20 11:38 98.6 F 72 16 83/73 L 94 L 03/25/20 06:55 98.8 F 182 H 24 H 95/74 96 - Problem List (1) Type 2 myocardial infarction due to arrhythmia SNOMED Code(s): 04672257 ICD Code: I49.9 - CARDIAC ARRHYTHMIA, UNSPECIFIED; I21.A1 - MYOCARDIAL INFARCTION TYPE 2 Status: Acute Current Visit: Yes (2) COVID-19 SNOMED Code(s): 160726337 ICD Code: U07.1 - COVID-19 Status: Acute Current Visit: Yes (3) Elevated troponin SNOMED Code(s): 986141617, 670301629, 352319914 ICD Code: R77.8 - OTHER SPECIFIED ABNORMALITIES OF PLASMA PROTEINS Status: Acute Current Visit: Yes (4) SVT (supraventricular tachycardia) SNOMED Code(s): 0347783 ICD Code: I47.1 - SUPRAVENTRICULAR TACHYCARDIA Status: Acute Current Visit: Yes (5) Acute renal injury SNOMED Code(s): 57515893, 03424054 ICD Code: N17.9 - ACUTE KIDNEY FAILURE, UNSPECIFIED Status: Acute Current Visit: Yes Problem List Initiated/Reviewed/Updated: Yes Orders Last 24hrs: Active Orders 24 hr Category Date Time Status Patient Status [ADT] Routine ADT 03/25/20 11:36 Active Cardiac Monitoring [RC] . DIRECTED Care 03/25/20 07:13 Active Influenza Vaccine Charge [RC] .DISCHARGE Care 03/25/20 12:07 Active Oxygen Therapy [RC] PRN Care 03/25/20 15:20 Active Peripheral IV Care [RC] . DIRECTED Care 03/25/20 07:13 Active Up With Assistance [RC] ASDIRECTED Care 03/25/20 15:20 Active VTE/DVT Education [RC] PER UNIT ROUTINE Care 03/25/20 15:20 Active Vital Signs [RC] Q4H Care 03/25/20 15:20 Active Regular Diet [DIET] Diet 03/25/20 Lunch Active C-REACTIVE PROTEIN [CHEM] AM Lab 03/26/20 05:11 Ordered CBC WITH AUTO DIFF [HEME] AM Lab 03/26/20 05:11 Ordered CMP [COMPREHENSIVE METABOLIC PN,CMP] [CHEM] AM Lab 03/26/20 05:11 Ordered DD [D-DIMER QUANTITATIVE] [COAG] AM Lab 03/26/20 05:11 Ordered MAGNESIUM [CHEM] AM Lab 03/26/20 05:11 Ordered PHOSPHORUS [CHEM] AM Lab 03/26/20 05:11 Ordered Acetaminophen [TylenoL] Med 03/25/20 15:20 Active 650 mg PO Q4H PRN Adenosine [Adenocard] Med 03/25/20 15:28 Active 6 - 12 mg IVPUSH Q1M PRN Enoxaparin [Lovenox] Med 03/25/20 16:00 Active 40 mg SUBCUT Q24H Ondansetron [Zofran] Med 03/25/20 15:20 Active 4 mg IV Q4H PRN Sodium Chloride 0.9% [Saline Flush] Med 03/25/20 07:13 Active 10 ml FLUSH ASDIRECTED PRN Convert IV to Saline Lock [OM.PC] Routine Oth 03/25/20 15:25 Ordered Peripheral IV Insertion Adult [OM.PC] Stat Oth 03/25/20 07:13 Ordered Resuscitation Status Routine Resus Stat 03/25/20 15:20 Ordered Medication Orders Acetaminophen (Tylenol) 650 mg PO Q4H PRN PRN Reason: Pain (Mild 1-3)/fever Adenosine (Adenocard) 6 - 12 mg IVPUSH Q1M PRN PRN Reason: Other Enoxaparin Sodium (Lovenox) 40 mg SUBCUT Q24H MARLON Ondansetron HCl (Zofran) 4 mg IV Q4H PRN PRN Reason: Nausea/Vomiting Sodium Chloride (Saline Flush) 10 ml FLUSH ASDIRECTED PRN PRN Reason: Keep Vein Open Last Admin: 03/25/20 07:05 Dose: 10 ml Documented by: MARIZOL Assessment/Plan Comment:: Assessment 54-year-old male presents with SVT likely secondary to COVID-19 infection. * Chest x-ray does not show significant pneumonia at this time. * Blood pressure does not appear to be able to tolerate significant beta-sarita at this time. * TSH is normal at 1.43, troponin elevated at 0.348, D-dimer 0.32, INR 1.05, PTT 28.2, ferritin 1739, LDH 210, proBNP 2063 Type II IA secondary to SVT. Demand ischemia. * Troponin 0 0.348, proBNP 2063 * EKG shows heart strain pattern Acute renal injury secondary to poor kidney perfusion due to SVT * No prior history of renal disease. * Estimated GFR 51, creatinine 1.4, BUN 25 Isolated mild elevation of bilirubin * Total bilirubin 1.2 Plan * Admit to ICU for close observation * Strict isolation * Echocardiogram * Monitor heart rate overnight * Continuous pulse ox * Hold on beta-sarita at this time secondary to low blood pressures. * Received fluid bolus in the emergency room. Hold fluids at this time secondary to concern of fluid overload in a Covid positive patient * Repeat CBC, CMP, mag, phosphorus, BNP, D-dimer in the morning * Repeat troponin later this afternoon * VTE prophylaxis with Lovenox * CODE STATUS full code * Length of stay overnight if patient has no deterioration in his heart rate and if his respiratory status - Mortality Measure Prognosis:: Poor
[2020-03-25] MEDS ORDERED: Enoxaparin 40 MG/0.4 ML Syringe SUBCUT SCH (16:00)
[2020-03-25] MEDS: Enoxaparin 40 MG/0.4 ML Syringe SUBCUT SCH (22:08)
[2020-03-25] MEDS: Acetaminophen 325 MG Tab PO PRN (22:09)
[2020-03-26] MEDS: Dexamethasone 4 MG Tab PO SCH (11:50)
--- NOTE | 2020-03-26 12:59 | CR ---
PROCEDURE INFORMATION: Exam: XR Chest, 1 View Exam date and time: 03/26/2020 10:28 AM Age: 64 years old Clinical indication: Condition or disease; Other: Respiratory failure, covid 19 + TECHNIQUE: Imaging protocol: XR of the chest Views: 1 view. COMPARISON: CR Chest 1V Frontal 03/25/2020 7:38 AM FINDINGS: Lungs: Bilateral opacities, right more than left. Pleural space: No definite pleural effusion. Heart/Mediastinum: Unremarkable. No cardiomegaly. Vasculature: Tortuosity of the thoracic aorta. Bones/joints: No acute findings. IMPRESSION: Bilateral pneumonia consistent with COVID-19 pneumonia. Thank you for allowing us to participate in the care of your patient. Dictated and Authenticated by: Hardik Shen MD 03/26/2020 12:21 PM Central Time ([place] & [place]) [facility]ALSherri
[2020-03-26] MEDS ORDERED: Sodium Chloride 0.9% 250 ML ONE (13:19)
[2020-03-26] MEDS ORDERED: Sodium Chloride 0.9% 250 ML IV ONE (13:30)
[2020-03-26] MEDS ORDERED: Aspirin 81 MG Tab.EC PO SCH (16:15)
[2020-03-26] MEDS ORDERED: Metoprolol Tartrate 25 MG Tab PO SCH (16:15)
--- NOTE | 2020-03-26 16:42 | PCM.PN ---
- General Info Date of Service: 03/26/20 Admission Dx/Problem (Free Text): Admission Diagnosis/Problem Admission Diagnosis/Problem Supraventricular tachycardia Subjective Update: Patient states he is feeling well and denies shortness of breath. Appetite is good and he is anticipating leaving. Unfortunately, his oxygen saturations off supplemental O2 is in the low 90s and occasionally upper 80s. No episodes of SVT overnight. Functional Status: Reports: Pain Controlled - Review of Systems General: Reports: No Symptoms HEENT: Reports: No Symptoms Pulmonary: Reports: No Symptoms Cardiovascular: Reports: No Symptoms Gastrointestinal: Reports: No Symptoms Musculoskeletal: Reports: No Symptoms Neurological: Reports: No Symptoms Psychiatric: Reports: No Symptoms - Patient Data Vitals - Most Recent: Last Vital Signs Temp 98.7 F 03/26/20 15:44 Pulse 82 03/26/20 13:38 Resp 19 03/26/20 15:44 BP 126/69 03/26/20 15:44 Pulse Ox 96 03/26/20 15:44 Weight - Most Recent: 222 lb 3.2 oz I&O - Last 24 Hours: Intake & Output 03/26/20 03/26/20 03/26/20 06:59 14:59 22:59 Intake Total 400 442 60 Balance 400 442 60 Imaging Impressions - Last 24 Hours: Chest x-ray: Bilateral pneumonia consistent with COVID-19 pneumonia. Lab Results Last 24 Hours: Laboratory Results - last 24 hr 03/26/20 03/26/20 03/26/20 Range/Units 05:56 05:56 05:56 WBC 4.83 (4.23-9.07) K/mm3 RBC 4.74 (4.63-6.08) M/mm3 Hgb 14.7 (13.7-17.5) gm/dl Hct 45.1 (40.1-51.0) % MCV 95.1 H (79.0-92.2) fl MCH 31.0 (25.7-32.2) pg MCHC 32.6 (32.2-35.5) g/dl RDW Std Deviation 42.0 (35.1-43.9) fL Plt Count 210 (163-337) K/mm3 MPV 11.4 (9.4-12.3) fl Neut % (Auto) 69.1 H (34.0-67.9) % Lymph % (Auto) 23.2 (21.8-53.1) % Schleicher % (Auto) 7.5 (5.3-12.2) % Eos % (Auto) 0 L (0.8-7.0) Baso % (Auto) 0.2 (0.1-1.2) % Neut # (Auto) 3.34 (1.78-5.38) K/mm3 Lymph # (Auto) 1.12 L (1.32-3.57) K/mm3 Schleicher # (Auto) 0.36 (0.30-0.82) K/mm3 Eos # (Auto) 0.00 L (0.04-0.54) K/mm3 Baso # (Auto) 0.01 (0.01-0.08) K/mm3 D-Dimer, Quantitative 0.32 (0.19-0.50) mg/L Puncture Site ABG pH (7.35-7.45) ABG pCO2 (35.0-45.0) mmHg ABG pO2 (80.0-100.0) mmHg ABG HCO3 (22.0-26.0) meq/L ABG O2 Saturation (96.0-97.0) % ABG Base Excess (-2-2.0) Ferdinand Test A-a Gradient mmHg O2 Delivery Device Oxygen Flow Rate FiO2 (21.00-100.00) % Sodium 138 (136-145) mEq/L Potassium 3.7 (3.5-5.1) mEq/L Chloride 102 (98-107) mEq/L Carbon Dioxide 26 (21-32) mEq/L Anion Gap 13.7 (5-15) BUN 20 H (7-18) mg/dL Creatinine 1.1 (0.7-1.3) mg/dL Est Cr Clr Drug Dosing 69.13 mL/min Estimated GFR (MDRD) > 60 (>60) mL/min BUN/Creatinine Ratio 18.2 H (14-18) Glucose 97 (80-115) mg/dL Calcium 8.5 (8.5-10.1) mg/dL Phosphorus 3.8 (2.6-4.7) mg/dL Magnesium 2.3 (1.8-2.4) mg/dl Total Bilirubin 1.1 H (0.2-1.0) mg/dL AST 31 (15-37) U/L ALT 31 (16-63) U/L Alkaline Phosphatase 66 (46-116) U/L Troponin I (0.00-0.056) ng/mL C-Reactive Protein 7.6 H* (<1.0) mg/dL Total Protein 7.6 (6.4-8.2) g/dl Albumin 3.4 (3.4-5.0) g/dl Globulin 4.2 gm/dL Albumin/Globulin Ratio 0.8 L (1-2) Triglycerides (<150) mg/dL Cholesterol (<200) mg/dL LDL Cholesterol Direct (<100) mg/dL HDL Cholesterol (40-59) mg/dL Blood Type 03/26/20 03/26/20 03/26/20 Range/Units 05:56 11: 15:40 WBC (4.23-9.07) K/mm3 RBC (4.63-6.08) M/mm3 Hgb (13.7-17.5) gm/dl Hct (40.1-51.0) % MCV (79.0-92.2) fl MCH (25.7-32.2) pg MCHC (32.2-35.5) g/dl RDW Std Deviation (35.1-43.9) fL Plt Count (163-337) K/mm3 MPV (9.4-12.3) fl Neut % (Auto) (34.0-67.9) % Lymph % (Auto) (21.8-53.1) % Schleicher % (Auto) (5.3-12.2) % Eos % (Auto) (0.8-7.0) Baso % (Auto) (0.1-1.2) % Neut # (Auto) (1.78-5.38) K/mm3 Lymph # (Auto) (1.32-3.57) K/mm3 [place]icher # (Auto) (0.30-0.82) K/mm3 Eos # (Auto) (0.04-0.54) K/mm3 Baso # (Auto) (0.01-0.08) K/mm3 D-Dimer, Quantitative (0.19-0.50) mg/L Puncture Site Lt radial ABG pH 7.46 H (7.35-7.45) ABG pCO2 31.3 L (35.0-45.0) mmHg ABG pO2 63.0 L (80.0-100.0) mmHg ABG HCO3 22.1 (22.0-26.0) meq/L ABG O2 Saturation 93.0 L (96.0-97.0) % ABG Base Excess -0.4 (-2-2.0) Ferdinand Test Positive A-a Gradient 55 mmHg O2 Delivery Device Nasal cannula Oxygen Flow Rate 0.5 FiO2 22.00 (21.00-100.00) % Sodium (136-145) mEq/L Potassium (3.5-5.1) mEq/L Chloride (98-107) mEq/L Carbon Dioxide (21-32) mEq/L Anion Gap (5-15) BUN (7-18) mg/dL Creatinine (0.7-1.3) mg/dL Est Cr Clr Drug Dosing mL/min Estimated GFR (MDRD) (>60) mL/min BUN/Creatinine Ratio (14-18) Glucose (80-115) mg/dL Calcium (8.5-10.1) mg/dL Phosphorus (2.6-4.7) mg/dL Magnesium (1.8-2.4) mg/dl Total Bilirubin (0.2-1.0) mg/dL AST (15-37) U/L ALT (16-63) U/L Alkaline Phosphatase (46-116) U/L Troponin I 0.108 H* (0.00-0.056) ng/mL C-Reactive Protein (<1.0) mg/dL Total Protein (6.4-8.2) g/dl Albumin (3.4-5.0) g/dl Globulin gm/dL Albumin/Globulin Ratio (1-2) Triglycerides (<150) mg/dL Cholesterol (<200) mg/dL LDL Cholesterol Direct (<100) mg/dL HDL Cholesterol (40-59) mg/dL Blood Type O POSITIVE 03/26/20 Range/Units 15:40 WBC (4.23-9.07) K/mm3 RBC (4.63-6.08) M/mm3 Hgb (13.7-17.5) gm/dl Hct (40.1-51.0) % MCV (79.0-92.2) fl MCH (25.7-32.2) pg MCHC (32.2-35.5) g/dl RDW Std Deviation (35.1-43.9) fL Plt Count (163-337) K/mm3 MPV (9.4-12.3) fl Neut % (Auto) (34.0-67.9) % Lymph % (Auto) (21.8-53.1) % Schleicher % (Auto) (5.3-12.2) % Eos % (Auto) (0.8-7.0) Baso % (Auto) (0.1-1.2) % Neut # (Auto) (1.78-5.38) K/mm3 Lymph # (Auto) (1.32-3.57) K/mm3 Schleicher # (Auto) (0.30-0.82) K/mm3 Eos # (Auto) (0.04-0.54) K/mm3 Baso # (Auto) (0.01-0.08) K/mm3 D-Dimer, Quantitative (0.19-0.50) mg/L Puncture Site ABG pH (7.35-7.45) ABG pCO2 (35.0-45.0) mmHg ABG pO2 (80.0-100.0) mmHg ABG HCO3 (22.0-26.0) meq/L ABG O2 Saturation (96.0-97.0) % ABG Base Excess (-2-2.0) Ferdinand Test A-a Gradient mmHg O2 Delivery Device Oxygen Flow Rate FiO2 (21.00-100.00) % Sodium (136-145) mEq/L Potassium (3.5-5.1) mEq/L Chloride (98-107) mEq/L Carbon Dioxide (21-32) mEq/L Anion Gap (5-15) BUN (7-18) mg/dL Creatinine (0.7-1.3) mg/dL Est Cr Clr Drug Dosing mL/min Estimated GFR (MDRD) (>60) mL/min BUN/Creatinine Ratio (14-18) Glucose (80-115) mg/dL Calcium (8.5-10.1) mg/dL Phosphorus (2.6-4.7) mg/dL Magnesium (1.8-2.4) mg/dl Total Bilirubin (0.2-1.0) mg/dL AST (15-37) U/L ALT (16-63) U/L Alkaline Phosphatase (46-116) U/L Troponin I (0.00-0.056) ng/mL C-Reactive Protein (<1.0) mg/dL Total Protein (6.4-8.2) g/dl Albumin (3.4-5.0) g/dl Globulin gm/dL Albumin/Globulin Ratio (1-2) Triglycerides 54 (<150) mg/dL Cholesterol 128 (<200) mg/dL LDL Cholesterol Direct 92 (<100) mg/dL HDL Cholesterol 31.0 L (40-59) mg/dL Blood Type Med Orders - Current: Current Medications Acetaminophen (Tylenol) 650 mg PO Q4H PRN PRN Reason: Pain (Mild 1-3)/fever Last Admin: 03/25/20 22:09 Dose: 650 mg Documented by: Adenosine (Adenocard) 6 - 12 mg IVPUSH Q1M PRN PRN Reason: Other Aspirin (Halfprin) 81 mg PO DAILY [facility] Dexamethasone (Dexamethasone) 6 mg PO Q24H [facility] Stop: 04/04/20 12:01 Last Admin: 03/26/20 11:50 Dose: 6 mg Documented by: Enoxaparin Sodium (Lovenox) 40 mg SUBCUT Q24H [facility] Last Admin: 03/25/20 22:08 Dose: 40 mg Documented by: Remdesivir 100 mg/ Sodium (Chloride) 100 mls @ 100 mls/hr IV Q24H [facility] Stop: 03/30/20 12:59 Sodium Chloride (Normal Saline) 250 mls @ 25 mls/hr IV ONETIME ONE Stop: 03/26/20 23:29 Last Admin: 03/26/20 13:30 Dose: 25 mls/hr Documented by: Metoprolol Tartrate (Lopressor) 25 mg PO Q12H [facility] Ondansetron HCl (Zofran) 4 mg IV Q4H PRN PRN Reason: Nausea/Vomiting Rosuvastatin Calcium (Crestor) 10 mg PO BEDTIME [facility] Sodium Chloride (Saline Flush) 10 ml FLUSH ASDIRECTED PRN PRN Reason: Keep Vein Open Last Admin: 03/25/20 07:05 Dose: 10 ml Documented by: Discontinued Medications Adenosine (Adenocard) Confirm Administered Dose 6 mg .ROUTE .STK-MED ONE Stop: 03/25/20 07:06 Last Admin: 03/25/20 07:47 Dose: Not Given Documented by: Adenosine (Adenocard) Confirm Administered Dose 12 mg .ROUTE .STK-MED ONE Stop: 03/25/20 07:07 Last Admin: 03/25/20 07:47 Dose: Not Given Documented by: Adenosine (Adenocard) 6 mg IVPUSH NOW ONE Stop: 03/25/20 07:01 Last Admin: 03/25/20 07:05 Dose: 6 mg Documented by: Adenosine (Adenocard) 6 mg IVPUSH NOW ONE Stop: 03/25/20 09:02 Last Admin: 03/25/20 09:07 Dose: 6 mg Documented by: Adenosine (Adenocard) 6 mg IVPUSH Q1M PRN PRN Reason: Other Aspirin (Aspirin) 324 mg PO ONETIME ONE Stop: 03/25/20 08:10 Last Admin: 03/25/20 08:17 Dose: 324 mg Documented by: Aspirin (Halfprin) 81 mg PO DAILY [facility] Last Admin: 03/26/20 16:30 Dose: Not Given Documented by: Enoxaparin Sodium (Lovenox) 40 mg SUBCUT Q24H [facility] Sodium Chloride (Normal Saline) 1,000 mls @ 1,000 mls/hr IV .BOLUS [facility] Last Admin: 03/25/20 07:44 Dose: 1,000 mls/hr Documented by: Sodium Chloride (Normal Saline) 1,000 mls @ 150 mls/hr IV ASDIRECTED [facility] Remdesivir 200 mg/ Sodium (Chloride) 250 mls @ 250 mls/hr IV ONETIME ONE Stop: 03/26/20 12:59 Last Admin: 03/26/20 11:50 Dose: 250 mls/hr Documented by: Sodium Chloride (Normal Saline) Confirm Administered Dose 250 mls @ as directed .ROUTE .STK-MED ONE Stop: 03/26/20 13:20 Last Admin: 03/26/20 13:27 Dose: Not Given Documented by: Influenza Virus Vaccine (Fluzone High-Dose Quad ) 240 mcg IM .ONCE ONE Stop: 03/25/20 12:16 Metoprolol Tartrate (Lopressor) 25 mg PO Q12H [facility] Last Admin: 03/26/20 16:29 Dose: Not Given Documented by: - Exam Quality Assessment: Supplemental Oxygen General: Alert, Oriented, Mild Distress (Patient is in mild respiratory distress. He has tachypnea and increased work of breathing.) HEENT: Pupils Equal, Pupils Reactive, Mucous Membr. Moist/[place] Neck: Supple Lungs: Normal Respiratory Effort (Increased respiratory effort and rate), Rales (Bibasilar) Cardiovascular: Regular Rate, Regular Rhythm GI/Abdominal Exam: Normal Bowel Sounds, Soft, Non-Tender, No Organomegaly, No Distention, No Abnormal Bruit, No Mass Extremities: Normal Inspection, Normal Range of Motion, Non-Tender, No Pedal Edema, Normal Capillary Refill Skin: Warm, Dry, Intact Psy/Mental Status: Alert, Normal Affect, Normal Mood #1 Interpretation EKG Date: 03/26/20 Rhythm: NSR Rate (Beats/Min): 79 [place]: Normal P-Wave: Present QRS: Normal ST-T: Normal QT: Normal Sepsis Event Note - Evaluation Sepsis Screening Result: No Definite Risk - Focused Exam Vital Signs: Vital Signs Temp Temp Pulse Resp BP Pulse Ox Pulse Ox 03/26/20 15:44 98.7 F 19 126/69 96 03/26/20 14:29 98.7 F 18 125/85 03/26/20 13:45 18 125/75 03/26/20 13:38 98.7 F 82 19 139/79 03/26/20 13:23 98.6 F 19 90/71 03/26/20 11:24 93 L 03/26/20 08:00 98.9 F 20 125/80 98 03/26/20 05:48 99 - Problem List & Annotations (1) Type 2 myocardial infarction due to arrhythmia SNOMED Code(s): 54389596 Code(s): I49.9 - CARDIAC ARRHYTHMIA, UNSPECIFIED; I21.A1 - MYOCARDIAL INFARCTION TYPE 2 Status: Acute Current Visit: Yes (2) COVID-19 SNOMED Code(s): 803282727 Code(s): U07.1 - COVID-19 Status: Acute Current Visit: Yes (3) Elevated troponin SNOMED Code(s): 157174488, 914037978, 353421940 Code(s): R77.8 - OTHER SPECIFIED ABNORMALITIES OF PLASMA PROTEINS Status: Acute Current Visit: Yes (4) SVT (supraventricular tachycardia) SNOMED Code(s): 5370012 Code(s): I47.1 - SUPRAVENTRICULAR TACHYCARDIA Status: Acute Current Vis it: Yes (5) Acute renal injury SNOMED Code(s): 84638994, 17952053 Code(s): N17.9 - ACUTE KIDNEY FAILURE, UNSPECIFIED Status: Acute Current Visit: Yes - Problem List Review Problem List Initiated/Reviewed/Updated: Yes - My Orders Last 24 Hours: My Active Orders 03/25/20 21:00 Enoxaparin [Lovenox] 40 mg SUBCUT Q24H 03/26/20 05:56 ABO/RH TYPE [BBK] Routine FRESH FROZEN PLASMA [BBK] Routine 03/26/20 10:32 RT Incentive Spirometry [RC] .PRN RT Acapella [RESPCARE] Routine 03/26/20 10:33 Verify Patient Consent Obtain [RC] ASDIRECTED Isolation [COMM] Stat Transfuse Fresh Frozen Plasma [COMM] Routine 03/26/20 10:34 EKG Documentation Completion [RC] ROUTINE 03/26/20 10:39 Patient Status [ADT] Routine 03/26/20 12:00 dexAMETHasone 6 mg PO Q24H 03/26/20 13:30 Sodium Chloride 0.9% [Normal Saline] 250 ml IV ONETIME 03/26/20 21:00 Aspirin [Halfprin] 81 mg PO DAILY Metoprolol Tartrate [Lopressor] 25 mg PO Q12H Rosuvastatin [Crestor] 10 mg PO BEDTIME 03/27/20 05:11 C-REACTIVE PROTEIN [CHEM] AM CBC WITH AUTO DIFF [HEME] AM CMP [COMPREHENSIVE METABOLIC PN,CMP] [CHEM] AM DD [D-DIMER QUANTITATIVE] [COAG] AM MAGNESIUM [CHEM] AM PHOSPHORUS [CHEM] AM 03/27/20 12:00 Remdesivir (Eua) [Remdesivir (EUA)] 100 mg Sodium Chloride 0.9% [Normal Saline] 100 ml IV Q24H - Plan Plan:: Assessment 03/25/2020 54-year-old male presents with SVT likely secondary to COVID-19 infection. * Chest x-ray does not show significant pneumonia at this time. * Blood pressure does not appear to be able to tolerate significant beta-sarita at this time. * TSH is normal at 1.43, troponin elevated at 0.348, D-dimer 0.32, INR 1.05, PTT 28.2, ferritin 1739, LDH 210, proBNP 2063 Type II NH secondary to SVT. Demand ischemia. * Troponin 0 0.348, proBNP 2062 * EKG shows heart strain pattern Acute renal injury secondary to poor kidney perfusion due to SVT * No prior history of renal disease. * Estimated GFR 51, creatinine 1.4, BUN 25 Isolated mild elevation of bilirubin * Total bilirubin 1.2 03/26/2020 Severe COVID-19 infection with pneumonia PSVT * Increased shortness of breath and oxygen supplementation * Worsening chest x-ray consistent with Covid pneumonia. * D-dimer 0.32, C-reactive protein increased 7.6, WBC 4.8 * Requiring 1 L O2 * Echocardiogram: * 1. Left ventricular ejection fraction, by visual estimation, is 60 to 65%. * 2. Normal left ventricular systolic function * 3. Borderline concentric left ventricular hypertrophy * 4. Normal pattern of LV diastolic filling * 5. Mild mitral valve regurgitation * 6. Mild tricuspid valve regurgitation * 7. Mild dilatation of the ascending aorta * 8. The right ventricular systolic pressure is normal * 9. No regional wall motion abnormalities * No SVT noted since admission Type II NH * EKG with resolved ST depression * Improving troponin at 0.1 * Denies any chest pain Acute renal injuryresolved * Estimated GFR greater than 60, creatinine 1.1, BUN 20 Improving isolated elevation of bilirubin Plan * Downgrade to MedSurg status on telemetry * Strict isolation * Continuous pulse ox * Remdesivir, dexamethasone, and convalescent plasma * I spoke with Ken Pichardo to provide information about convalescent plasma. I offered the "fax sheet for patients and parents/caregivers, for COVID-19 convalescent plasma to read and review. I stated that therapy has been approved by an emergency use authorization process and has not fully been FDA reviewed or approved. I shared potential risks from the therapy including transmission of blood borne pathogen such as HIV and hepatitis C, allergic and transfusion related reactions, post transfusion purpura. Additionally theoretical risks include a phenomenon called antibodydependent enhancement of infection such as is seen in dengue or attenuation of an immune response that may make patients more susceptible to reinfection. * Metoprolol 25 mg twice daily * Aspirin 81 mg daily * Lipid panel * Crestor 10 mg daily * Repeat CBC, CMP, mag, phosphorus, BNP, D-dimer in the morning * VTE prophylaxis with Lovenox * CODE STATUS full code * Length of stay minimum of 5 additional days secondary to COVID-19 treatment.
[2020-03-26] MEDS: Metoprolol Tartrate 25 MG Tab PO SCH (21:00)
[2020-03-26] MEDS: Aspirin 81 MG Tab.EC PO SCH (21:03)
[2020-03-26] MEDS: Rosuvastatin 10 MG Tab PO SCH (21:03)
[2020-03-26] MEDS: Enoxaparin 40 MG/0.4 ML Syringe SUBCUT SCH (21:05)
[2020-03-27] MEDS: Acetaminophen 325 MG Tab PO PRN (06:01)
[2020-03-27] MEDS: Aspirin 81 MG Tab.EC PO SCH (09:03)
[2020-03-27] MEDS: Metoprolol Tartrate 25 MG Tab PO SCH ×2 (09:03→22:47)
[2020-03-27] MEDS: REMDESIVIR (EUA) 100 MG in Sodium Chloride 0.9% 100 ML IV SCH (12:50)
[2020-03-27] MEDS: Dexamethasone 4 MG Tab PO SCH (12:50)
--- NOTE | 2020-03-27 15:29 | PCM.PN ---
- General Info Date of Service: 03/27/20 Functional Status: Reports: Tolerating Diet, Ambulating, Urinating, Other (O2 saturation) - Review of Systems General: Reports: No Symptoms HEENT: Reports: No Symptoms Pulmonary: Reports: Shortness of Breath (minimal) Cardiovascular: Reports: No Symptoms Gastrointestinal: Reports: No Symptoms Genitourinary: Reports: No Symptoms Musculoskeletal: Reports: No Symptoms Skin: Reports: No Symptoms Neurological: Reports: No Symptoms Psychiatric: Reports: No Symptoms - Patient Data Vitals - Most Recent: Last Vital Signs Temp 36.7 C 03/27/20 05:39 Pulse 71 03/27/20 09:03 Resp 20 03/27/20 05:39 BP 104/66 03/27/20 09:03 Pulse Ox 93 L 03/27/20 13:07 Weight - Most Recent: 100.788 kg I&O - Last 24 Hours: Intake & Output 03/27/20 03/27/20 03/27/20 06:59 14:59 22:59 Intake Total 996 Output Total 250 Balance 746 Lab Results Last 24 Hours: Laboratory Results - last 24 hr 03/26/20 03/26/20 03/26/20 Range/Units 05:56 15:40 15:40 WBC (4.23-9.07) K/mm3 RBC (4.63-6.08) M/mm3 Hgb (13.7-17.5) gm/dl Hct (40.1-51.0) % MCV (79.0-92.2) fl MCH (25.7-32.2) pg MCHC (32.2-35.5) g/dl RDW Std Deviation (35.1-43.9) fL Plt Count (163-337) K/mm3 MPV (9.4-12.3) fl Neut % (Auto) (34.0-67.9) % Lymph % (Auto) (21.8-53.1) % [place] % (Auto) (5.3-12.2) % Eos % (Auto) (0.8-7.0) Baso % (Auto) (0.1-1.2) % Neut # (Auto) (1.78-5.38) K/mm3 Lymph # (Auto) (1.32-3.57) K/mm3 [place] # (Auto) (0.30-0.82) K/mm3 Eos # (Auto) (0.04-0.54) K/mm3 Baso # (Auto) (0.01-0.08) K/mm3 Manual Slide Review D-Dimer, Quantitative (0.19-0.50) mg/L Sodium (136-145) mEq/L Potassium (3.5-5.1) mEq/L Chloride (98-107) mEq/L Carbon Dioxide (21-32) mEq/L Anion Gap (5-15) BUN (7-18) mg/dL Creatinine (0.7-1.3) mg/dL Est Cr Clr Drug Dosing mL/min Estimated GFR (MDRD) (>60) mL/min BUN/Creatinine Ratio (14-18) Glucose (80-115) mg/dL Calcium (8.5-10.1) mg/dL Phosphorus (2.6-4.7) mg/dL Magnesium (1.8-2.4) mg/dl Total Bilirubin (0.2-1.0) mg/dL AST (15-37) U/L ALT (16-63) U/L Alkaline Phosphatase (46-116) U/L Troponin I 0.108 H* (0.00-0.056) ng/mL C-Reactive Protein (<1.0) mg/dL Total Protein (6.4-8.2) g/dl Albumin (3.4-5.0) g/dl Globulin gm/dL Albumin/Globulin Ratio (1-2) Triglycerides 54 (<150) mg/dL Cholesterol 128 (<200) mg/dL LDL Cholesterol Direct 92 (<100) mg/dL HDL Cholesterol 31.0 L (40-59) mg/dL Blood Type O POSITIVE 03/27/20 03/27/20 03/27/20 Range/Units 05:34 05:34 05:34 WBC 6.07 (4.23-9.07) K/mm3 RBC 4.60 L (4.63-6.08) M/mm3 Hgb 14.3 (13.7-17.5) gm/dl Hct 42.8 (40.1-51.0) % MCV 93.0 H (79.0-92.2) fl MCH 31.1 (25.7-32.2) pg MCHC 33.4 (32.2-35.5) g/dl RDW Std Deviation 39.8 (35.1-43.9) fL Plt Count 205 (163-337) K/mm3 MPV 11.6 (9.4-12.3) fl Neut % (Auto) 77.7 H (34.0-67.9) % Lymph % (Auto) 15.0 L (21.8-53.1) % [place] % (Auto) 7.1 (5.3-12.2) % Eos % (Auto) 0 L (0.8-7.0) Baso % (Auto) 0.0 L (0.1-1.2) % Neut # (Auto) 4.72 (1.78-5.38) K/mm3 Lymph # (Auto) 0.91 L (1.32-3.57) K/mm3 [place] # (Auto) 0.43 (0.30-0.82) K/mm3 Eos # (Auto) 0.00 L (0.04-0.54) K/mm3 Baso # (Auto) 0.00 L (0.01-0.08) K/mm3 Manual Slide Review Not Reportable D-Dimer, Quantitative 0.37 (0.19-0.50) mg/L Sodium 138 (136-145) mEq/L Potassium 4.1 (3.5-5.1) mEq/L Chloride 102 (98-107) mEq/L Carbon Dioxide 24 (21-32) mEq/L Anion Gap 16.1 H (5-15) BUN 20 H (7-18) mg/dL Creatinine 1.0 (0.7-1.3) mg/dL Est Cr Clr Drug Dosing 76.04 mL/min Estimated GFR (MDRD) > 60 (>60) mL/min BUN/Creatinine Ratio 20.0 H (14-18) Glucose 91 (80-115) mg/dL Calcium 8.6 (8.5-10.1) mg/dL Phosphorus 3.6 (2.6-4.7) mg/dL Magnesium 2.2 (1.8-2.4) mg/dl Total Bilirubin 0.7 (0.2-1.0) mg/dL AST 30 (15-37) U/L ALT 28 (16-63) U/L Alkaline Phosphatase 60 (46-116) U/L Troponin I (0.00-0.056) ng/mL C-Reactive Protein 10.9 H* (<1.0) mg/dL Total Protein 7.2 (6.4-8.2) g/dl Albumin 3.1 L (3.4-5.0) g/dl Globulin 4.1 gm/dL Albumin/Globulin Ratio 0.8 L (1-2) Triglycerides (<150) mg/dL Cholesterol (<200) mg/dL LDL Cholesterol Direct (<100) mg/dL HDL Cholesterol (40-59) mg/dL Blood Type Med Orders - Current: Current Medications Acetaminophen (Tylenol) 650 mg PO Q4H PRN PRN Reason: Pain (Mild 1-3)/fever Last Admin: 03/27/20 06:01 Dose: 650 mg Documented by: Adenosine (Adenocard) 6 - 12 mg IVPUSH Q1M PRN PRN Reason: Other Aspirin (Halfprin) 81 mg PO DAILY [facility] Last Admin: 03/27/20 09:03 Dose: 81 mg Documented by: Dexamethasone (Dexamethasone) 6 mg PO Q24H [facility] Stop: 04/04/20 12:01 Last Admin: 03/27/20 12:50 Dose: 6 mg Documented by: Enoxaparin Sodium (Lovenox) 40 mg SUBCUT Q24H [facility] Last Admin: 03/26/20 21:05 Dose: 40 mg Documented by: Remdesivir 100 mg/ Sodium (Chloride) 100 mls @ 100 mls/hr IV Q24H [facility] Stop: 03/30/20 12:59 Last Admin: 03/27/20 12:50 Dose: 100 mls/hr Documented by: Metoprolol Tartrate (Lopressor) 25 mg PO Q12H [facility] Last Admin: 03/27/20 09:03 Dose: 25 mg Documented by: Ondansetron HCl (Zofran) 4 mg IV Q4H PRN PRN Reason: Nausea/Vomiting Rosuvastatin Calcium (Crestor) 10 mg PO BEDTIME [facility] Last Admin: 03/26/20 21:03 Dose: 10 mg Documented by: Sodium Chloride (Saline Flush) 10 ml FLUSH ASDIRECTED PRN PRN Reason: Keep Vein Open Last Admin: 03/25/20 07:05 Dose: 10 ml Documented by: Discontinued Medications Adenosine (Adenocard) Confirm Administered Dose 6 mg .ROUTE .STK-MED ONE Stop: 03/25/20 07:06 Last Admin: 03/25/20 07:47 Dose: Not Given Documented by: Adenosine (Adenocard) Confirm Administered Dose 12 mg .ROUTE .STK-MED ONE Stop: 03/25/20 07:07 Last Admin: 03/25/20 07:47 Dose: Not Given Documented by: Adenosine (Adenocard) 6 mg IVPUSH NOW ONE Stop: 03/25/20 07:01 Last Admin: 03/25/20 07:05 Dose: 6 mg Documented by: Adenosine (Adenocard) 6 mg IVPUSH NOW ONE Stop: 03/25/20 09:02 Last Admin: 03/25/20 09:07 Dose: 6 mg Documented by: Adenosine (Adenocard) 6 mg IVPUSH Q1M PRN PRN Reason: Other Aspirin (Aspirin) 324 mg PO ONETIME ONE Stop: 03/25/20 08:10 Last Admin: 03/25/20 08:17 Dose: 324 mg Documented by: Aspirin (Halfprin) 81 mg PO DAILY [facility] Last Admin: 03/26/20 16:30 Dose: Not Given Documented by: Enoxaparin Sodium (Lovenox) 40 mg SUBCUT Q24H [facility] Sodium Chloride (Normal Saline) 1,000 mls @ 1,000 mls/hr IV .BOLUS [facility] Last Admin: 03/25/20 07:44 Dose: 1,000 mls/hr Documented by: Sodium Chloride (Normal Saline) 1,000 mls @ 150 mls/hr IV ASDIRECTED [facility] Remdesivir 200 mg/ Sodium (Chloride) 250 mls @ 250 mls/hr IV ONETIME ONE Stop: 03/26/20 12:59 Last Admin: 03/26/20 11:50 Dose: 250 mls/hr Documented by: Sodium Chloride (Normal Saline) Confirm Administered Dose 250 mls @ as directed .ROUTE .STK-MED ONE Stop: 03/26/20 13:20 Last Admin: 03/26/20 13:27 Dose: Not Given Documented by: Sodium Chloride (Normal Saline) 250 mls @ 25 mls/hr IV ONETIME ONE Stop: 03/26/20 23:29 Last Admin: 03/26/20 13:30 Dose: 25 mls/hr Documented by: Influenza Virus Vaccine (Fluzone High-Dose Quad ) 240 mcg IM .ONCE ONE Stop: 03/25/20 12:16 Metoprolol Tartrate (Lopressor) 25 mg PO Q12H [facility] Last Admin: 03/26/20 16:29 Dose: Not Given Documented by: - Exam Quality Assessment: Supplemental Oxygen, DVT Prophylaxis General: Alert, Oriented, Cooperative, No Acute Distress HEENT: Pupils Equal, Pupils Reactive, EOMI Neck: Trachea Midline, No JVD Lungs: Normal Respiratory Effort, Decreased Breath Sounds Cardiovascular: Regular Rate, Regular Rhythm GI/Abdominal Exam: Normal Bowel Sounds, Soft, Non-Tender, No Organomegaly, No Distention (Male) Exam: Deferred Back Exam: Normal Inspection Extremities: Normal Inspection, Normal Range of Motion, No Pedal Edema, Normal Capillary Refill Skin: Warm, Dry, Intact Neurological: No New Focal Deficit, Normal Gait, Normal Speech Psy/Mental Status: Alert, Normal Affect, Normal Mood Sepsis Event Note - Evaluation Sepsis Screening Result: No Definite Risk - Focused Exam Vital Signs: Vital Signs Temp Pulse Resp BP Pulse Ox Pulse Ox Pulse Ox 03/27/20 13:07 93 L 03/27/20 12:18 92 L 03/27/20 12:10 95 03/27/20 09:03 71 104/66 03/27/20 07:25 93 L 03/27/20 05:39 36.7 C 66 20 108/66 94 L - Problem List Review Problem List Initiated/Reviewed/Updated: Yes - Plan Plan:: Assessment 03/25/2020 54-year-old male presents with SVT likely secondary to COVID-19 infection. * Chest x-ray does not show significant pneumonia at this time. * Blood pressure does not appear to be able to tolerate significant beta-sarita at this time. * TSH is normal at 1.43, troponin elevated at 0.348, D-dimer 0.32, INR 1.05, PTT 28.2, ferritin 1739, LDH 210, proBNP 2063 Type II [place] secondary to SVT. Demand ischemia. * Troponin 0 0.348, proBNP 2063 * EKG shows heart strain pattern Acute renal injury secondary to poor kidney perfusion due to SVT * No prior history of renal disease. * Estimated GFR 51, creatinine 1.4, BUN 25 Isolated mild elevation of bilirubin * Total bilirubin 1.2 03/26/2020 Severe COVID-19 infection with pneumonia PSVT * Increased shortness of breath and oxygen supplementation * Worsening chest x-ray consistent with Covid pneumonia. * D-dimer 0.32, C-reactive protein increased 7.6, WBC 4.8 * Requiring 1 L O2 * Echocardiogram: * 1. Left ventricular ejection fraction, by visual estimation, is 60 to 65%. * 2. Normal left ventricular systolic function * 3. Borderline concentric left ventricular hypertrophy * 4. Normal pattern of LV diastolic filling * 5. Mild mitral valve regurgitation * 6. Mild tricuspid valve regurgitation * 7. Mild dilatation of the ascending aorta * 8. The right ventricular systolic pressure is normal * 9. No regional wall motion abnormalities * No SVT noted since admission Type II [place] * EKG with resolved ST depression * Improving troponin at 0.1 * Denies any chest pain Acute renal injuryresolved * Estimated GFR greater than 60, creatinine 1.1, BUN 20 Improving isolated elevation of bilirubin Plan * MedSurg status on telemetry * Strict isolation * Continuous pulse ox * Remdesivir, dexamethasone, and convalescent plasma * I spoke with Ken Pichardo to provide information about convalescent plasma. I offered the "fax sheet for patients and parents/caregivers, for COVID-19 convalescent plasma to read and review. I stated that therapy has been approved by an emergency use authorization process and has not fully been FDA reviewed or approved. I shared potential risks from the therapy including transmission of blood borne pathogen such as HIV and hepatitis C, allergic and transfusion related reactions, post transfusion purpura. Additionally theoretical risks include a phenomenon called antibodydependent enhancement of infection such as is seen in dengue or attenuation of an immune response that may make patients more susceptible to reinfection. * Metoprolol 25 mg twice daily * Aspirin 81 mg daily * Lipid panel * Crestor 10 mg daily * Repeat CBC, CMP, mag, phosphorus, BNP, D-dimer in the morning * VTE prophylaxis with Lovenox * CODE STATUS full code * Length of stay minimum of 5 additional days secondary to COVID-19 treatment. * DC anticipated on 03/30/2020
[2020-03-27] MEDS: Rosuvastatin 10 MG Tab PO SCH (22:46)
[2020-03-27] MEDS: Enoxaparin 40 MG/0.4 ML Syringe SUBCUT SCH (22:47)
[2020-03-28] MEDS: Aspirin 81 MG Tab.EC PO SCH (08:38)
[2020-03-28] MEDS: Metoprolol Tartrate 25 MG Tab PO SCH ×2 (08:40→20:58)
[2020-03-28] MEDS: REMDESIVIR (EUA) 100 MG in Sodium Chloride 0.9% 100 ML IV SCH (12:31)
[2020-03-28] MEDS: Dexamethasone 4 MG Tab PO SCH (12:32)
[2020-03-28] MEDS ORDERED: Magnesium Hydroxide 400 MG/5 ML Susp 30 ML Cup PO ONE (20:00)
[2020-03-28] MEDS: Rosuvastatin 10 MG Tab PO SCH (20:56)
[2020-03-28] MEDS: Enoxaparin 40 MG/0.4 ML Syringe SUBCUT SCH (21:05)
--- NOTE | 2020-03-29 07:56 | PCM.PN ---
- General Info Date of Service: 03/29/20 Subjective Update: Had an episode of SVT, resolved spontaneously. describe maneuvers to break SVT; will prescribe Lopressor 50 mg every 12 hours-directions 1/2 tab every 12 hours or as directed for rapid HR. Functional Status: Reports: Tolerating Diet, Ambulating, Urinating - Review of Systems General: Reports: No Symptoms HEENT: Reports: No Symptoms Pulmonary: Reports: No Symptoms Cardiovascular: Reports: No Symptoms Gastrointestinal: Reports: No Symptoms Genitourinary: Reports: No Symptoms Musculoskeletal: Reports: No Symptoms Skin: Reports: No Symptoms Neurological: Reports: No Symptoms Psychiatric: Reports: No Symptoms - Patient Data Vitals - Most Recent: Last Vital Signs Temp 36.4 C 03/29/20 04:55 Pulse 55 L 03/29/20 04:55 Resp 18 03/29/20 04:55 BP 106/55 L 03/29/20 04:55 Pulse Ox 90 L 03/29/20 07:12 Weight - Most Recent: 96.933 kg I&O - Last 24 Hours: Intake & Output 03/28/20 03/29/20 03/29/20 22:59 06:59 14:59 Intake Total 1080 400 Output Total 425 Balance 1080 -25 Lab Results Last 24 Hours: Laboratory Results - last 24 hr 03/29/20 03/29/20 Range/Units 06:20 06:20 WBC 4.12 L (4.23-9.07) K/mm3 RBC 4.65 (4.63-6.08) M/mm3 Hgb 14.4 (13.7-17.5) gm/dl Hct 43.1 (40.1-51.0) % MCV 92.7 H (79.0-92.2) fl MCH 31.0 (25.7-32.2) pg MCHC 33.4 (32.2-35.5) g/dl RDW Std Deviation 39.5 (35.1-43.9) fL Plt Count 276 (163-337) K/mm3 MPV 11.3 (9.4-12.3) fl Neut % (Auto) 65.8 (34.0-67.9) % Lymph % (Auto) 23.5 (21.8-53.1) % [place] % (Auto) 10.7 (5.3-12.2) % Eos % (Auto) 0 L (0.8-7.0) Baso % (Auto) 0.0 L (0.1-1.2) % Neut # (Auto) 2.71 (1.78-5.38) K/mm3 Lymph # (Auto) 0.97 L (1.32-3.57) K/mm3 [place] # (Auto) 0.44 (0.30-0.82) K/mm3 Eos # (Auto) 0.00 L (0.04-0.54) K/mm3 Baso # (Auto) 0.00 L (0.01-0.08) K/mm3 Manual Slide Review Normal smear Sodium 141 (136-145) mEq/L Potassium 3.8 (3.5-5.1) mEq/L Chloride 106 (98-107) mEq/L Carbon Dioxide 23 (21-32) mEq/L Anion Gap 15.8 H (5-15) BUN 23 H (7-18) mg/dL Creatinine 0.9 (0.7-1.3) mg/dL Est Cr Clr Drug Dosing 84.49 mL/min Estimated GFR (MDRD) > 60 (>60) mL/min BUN/Creatinine Ratio 25.6 H (14-18) Glucose 100 (80-115) mg/dL Calcium 8.4 L (8.5-10.1) mg/dL Med Orders - Current: Current Medications Acetaminophen (Tylenol) 650 mg PO Q4H PRN PRN Reason: Pain (Mild 1-3)/fever Last Admin: 03/27/20 06:01 Dose: 650 mg Documented by: Adenosine (Adenocard) 6 - 12 mg IVPUSH Q1M PRN PRN Reason: Other Aspirin (Halfprin) 81 mg PO DAILY [facility] Last Admin: 03/28/20 08:38 Dose: 81 mg Documented by: Dexamethasone (Dexamethasone) 6 mg PO DAILY [facility] Stop: 04/04/20 09:01 Enoxaparin Sodium (Lovenox) 40 mg SUBCUT Q24H [facility] Last Admin: 03/28/20 21:05 Dose: 40 mg Documented by: Remdesivir 100 mg/ Sodium (Chloride) 100 mls @ 100 mls/hr IV Q24H [facility] Stop: 03/30/20 09:59 Metoprolol Tartrate (Lopressor) 25 mg PO Q12H [facility] Last Admin: 03/28/20 20:58 Dose: 25 mg Documented by: Ondansetron HCl (Zofran) 4 mg IV Q4H PRN PRN Reason: Nausea/Vomiting Rosuvastatin Calcium (Crestor) 10 mg PO BEDTIME [facility] Last Admin: 03/28/20 20:56 Dose: 10 mg Documented by: Sodium Chloride (Saline Flush) 10 ml FLUSH ASDIRECTED PRN PRN Reason: Keep Vein Open Last Admin: 03/25/20 07:05 Dose: 10 ml Documented by: Discontinued Medications Adenosine (Adenocard) Confirm Administered Dose 6 mg .ROUTE .STK-MED ONE Stop: 03/25/20 07:06 Last Admin: 03/25/20 07:47 Dose: Not Given Documented by: Adenosine (Adenocard) Confirm Administered Dose 12 mg .ROUTE .STK-MED ONE Stop: 03/25/20 07:07 Last Admin: 03/25/20 07:47 Dose: Not Given Documented by: Adenosine (Adenocard) 6 mg IVPUSH NOW ONE Stop: 03/25/20 07:01 Last Admin: 03/25/20 07:05 Dose: 6 mg Documented by: Adenosine (Adenocard) 6 mg IVPUSH NOW ONE Stop: 03/25/20 09:02 Last Admin: 03/25/20 09:07 Dose: 6 mg Documented by: Adenosine (Adenocard) 6 mg IVPUSH Q1M PRN PRN Reason: Other Aspirin (Aspirin) 324 mg PO ONETIME ONE Stop: 03/25/20 08:10 Last Admin: 03/25/20 08:17 Dose: 324 mg Documented by: Aspirin (Halfprin) 81 mg PO DAILY [facility] Last Admin: 03/26/20 16:30 Dose: Not Given Documented by: Dexamethasone (Dexamethasone) 6 mg PO Q24H [facility] Stop: 04/04/20 12:01 Last Admin: 03/28/20 12:32 Dose: 6 mg Documented by: Enoxaparin Sodium (Lovenox) 40 mg SUBCUT Q24H [facility] Sodium Chloride (Normal Saline) 1,000 mls @ 1,000 mls/hr IV .BOLUS [facility] Last Admin: 03/25/20 07:44 Dose: 1,000 mls/hr Documented by: Sodium Chloride (Normal Saline) 1,000 mls @ 150 mls/hr IV ASDIRECTED [facility] Remdesivir 200 mg/ Sodium (Chloride) 250 mls @ 250 mls/hr IV ONETIME ONE Stop: 03/26/20 12:59 Last Admin: 03/26/20 11:50 Dose: 250 mls/hr Documented by: Remdesivir 100 mg/ Sodium (Chloride) 100 mls @ 100 mls/hr IV Q24H [facility] Stop: 03/28/20 12:59 Last Admin: 03/28/20 12:31 Dose: 100 mls/hr Documented by: Sodium Chloride (Normal Saline) Confirm Administered Dose 250 mls @ as directed .ROUTE .STK-MED ONE Stop: 03/26/20 13:20 Last Admin: 03/26/20 13:27 Dose: Not Given Documented by: Sodium Chloride (Normal Saline) 250 mls @ 25 mls/hr IV ONETIME ONE Stop: 03/26/20 23:29 Last Admin: 03/26/20 13:30 Dose: 25 mls/hr Documented by: Influenza Virus Vaccine (Fluzone High-Dose Quad ) 240 mcg IM .ONCE ONE Stop: 03/25/20 12:16 Magnesium Hydroxide (Milk Of Magnesia) 30 ml PO ONETIME ONE Stop: 03/28/20 20:01 Last Admin: 03/28/20 20:55 Dose: Not Given Documented by: Metoprolol Tartrate (Lopressor) 25 mg PO Q12H [facility] Last Admin: 03/26/20 16:29 Dose: Not Given Documented by: - Exam Quality Assessment: DVT Prophylaxis General: Alert, Oriented, Cooperative, No Acute Distress HEENT: Pupils Equal, Pupils Reactive, EOMI Neck: Trachea Midline, No JVD Lungs: Normal Respiratory Effort Cardiovascular: Regular Rate, Regular Rhythm GI/Abdominal Exam: Normal Bowel Sounds, Soft, Non-Tender (Male) Exam: Deferred Back Exam: Normal Inspection Extremities: Normal Inspection, Normal Capillary Refill Skin: Warm Neurological: No New Focal Deficit Psy/Mental Status: Alert, Normal Affect, Normal Mood Sepsis Event Note - Evaluation Sepsis Screening Result: No Definite Risk - Focused Exam Vital Signs: Vital Signs Temp Pulse Resp BP Pulse Ox Pulse Ox 03/29/20 07:12 90 L 03/29/20 04:55 36.4 C 55 L 18 106/55 L 89 L 03/28/20 22:17 67 127/80 95 03/28/20 20:59 63 94 L 03/28/20 20:58 36.4 C 59 L 18 110/64 92 L - Problem List Review Problem List Initiated/Reviewed/Updated: Yes - My Orders Last 24 Hours: My Active Orders 03/30/20 05:30 BASIC METABOLIC PANEL,BMP [CHEM] DAILY CBC WITH AUTO DIFF [HEME] DAILY 03/31/20 05:30 BASIC METABOLIC PANEL,BMP [CHEM] DAILY CBC WITH AUTO DIFF [HEME] DAILY 04/01/20 05:30 BASIC METABOLIC PANEL,BMP [CHEM] DAILY - Plan Plan:: Assessment 03/25/2020 54-year-old male presents with SVT likely secondary to COVID-19 infection. * Chest x-ray does not show significant pneumonia at this time. * Blood pressure does not appear to be able to tolerate significant beta-sarita at this time. * TSH is normal at 1.43, troponin elevated at 0.348, D-dimer 0.32, INR 1.05, PTT 28.2, ferritin 1739, LDH 210, proBNP 2063 Type II [place] secondary to SVT. Demand ischemia. * Troponin 0 0.348, proBNP 2063 * EKG shows heart strain pattern Acute renal injury secondary to poor kidney perfusion due to SVT * No prior history of renal disease. * Estimated GFR 51, creatinine 1.4, BUN 25 Isolated mild elevation of bilirubin * Total bilirubin 1.2 03/26/2020 Severe COVID-19 infection with pneumonia PSVT * Increased shortness of breath and oxygen supplementation * Worsening chest x-ray consistent with Covid pneumonia. * D-dimer 0.32, C-reactive protein increased 7.6, WBC 4.8 * Requiring 1 L O2 * Echocardiogram: * 1. Left ventricular ejection fraction, by visual estimation, is 60 to 65%. * 2. Normal left ventricular systolic function * 3. Borderline concentric left ventricular hypertrophy * 4. Normal pattern of LV diastolic filling * 5. Mild mitral valve regurgitation * 6. Mild tricuspid valve regurgitation * 7. Mild dilatation of the ascending aorta * 8. The right ventricular systolic pressure is normal * 9. No regional wall motion abnormalities * No SVT noted since admission Type II [place] * EKG with resolved ST depression * Improving troponin at 0.1 * Denies any chest pain Acute renal injuryresolved * Estimated GFR greater than 60, creatinine 1.1, BUN 20 Improving isolated elevation of bilirubin Plan * MedSurg status on telemetry * Strict isolation * Continuous pulse ox * Remdesivir, dexamethasone, and convalescent plasma * I spoke with Ken Pichardo to provide information about convalescent plasma. I offered the "fax sheet for patients and parents/caregivers, for COVID-19 convalescent plasma to read and review. I stated that therapy has been approved by an emergency use authorization process and has not fully been FDA reviewed or approved. I shared potential risks from the therapy including transmission of blood borne pathogen such as HIV and hepatitis C, allergic and transfusion related reactions, post transfusion purpura. Additionally theoretical risks include a phenomenon called antibodydependent enhancement of infection such as is seen in dengue or attenuation of an immune response that may make patients more susceptible to reinfection. * Metoprolol 25 mg twice daily * Aspirin 81 mg daily * Lipid panel * Crestor 10 mg daily * Repeat CBC, CMP, mag, phosphorus, BNP, D-dimer in the morning * VTE prophylaxis with Lovenox * CODE STATUS full code * Length of stay minimum of 5 additional days secondary to COVID-19 treatment. * DC anticipated on 03/30/2020
[2020-03-29] MEDS: Metoprolol Tartrate 25 MG Tab PO SCH ×2 (09:21→21:27)
[2020-03-29] MEDS: Dexamethasone 4 MG Tab PO SCH (09:25)
[2020-03-29] MEDS: REMDESIVIR (EUA) 100 MG in Sodium Chloride 0.9% 100 ML IV SCH (09:26)
[2020-03-29] MEDS: Aspirin 81 MG Tab.EC PO SCH (09:26)
--- NOTE | 2020-03-29 16:29 | PCM.PN ---
- General Info Date of Service: 03/28/20 Functional Status: Reports: Pain Controlled, Tolerating Diet, Ambulating, Urinating - Review of Systems General: Reports: No Symptoms HEENT: Reports: No Symptoms Pulmonary: Reports: No Symptoms Cardiovascular: Reports: No Symptoms Gastrointestinal: Reports: No Symptoms Genitourinary: Reports: No Symptoms Musculoskeletal: Reports: No Symptoms Skin: Reports: No Symptoms Neurological: Reports: No Symptoms Psychiatric: Reports: No Symptoms - Patient Data Vitals - Most Recent: Last Vital Signs Temp 36.4 C 03/29/20 12:13 Pulse 56 L 03/29/20 12:13 Resp 20 03/29/20 12:13 BP 104/63 03/29/20 12:13 Pulse Ox 96 03/29/20 14:03 Weight - Most Recent: 96.933 kg I&O - Last 24 Hours: Intake & Output 03/29/20 03/29/20 03/29/20 06:59 14:59 22:59 Intake Total 520 420 Output Total 425 Balance 95 420 Lab Results Last 24 Hours: Laboratory Results - last 24 hr 03/29/20 03/29/20 Range/Units 06:20 06:20 WBC 4.12 L (4.23-9.07) K/mm3 RBC 4.65 (4.63-6.08) M/mm3 Hgb 14.4 (13.7-17.5) gm/dl Hct 43.1 (40.1-51.0) % MCV 92.7 H (79.0-92.2) fl MCH 31.0 (25.7-32.2) pg MCHC 33.4 (32.2-35.5) g/dl RDW Std Deviation 39.5 (35.1-43.9) fL Plt Count 276 (163-337) K/mm3 MPV 11.3 (9.4-12.3) fl Neut % (Auto) 65.8 (34.0-67.9) % Lymph % (Auto) 23.5 (21.8-53.1) % [place] % (Auto) 10.7 (5.3-12.2) % Eos % (Auto) 0 L (0.8-7.0) Baso % (Auto) 0.0 L (0.1-1.2) % Neut # (Auto) 2.71 (1.78-5.38) K/mm3 Lymph # (Auto) 0.97 L (1.32-3.57) K/mm3 [place] # (Auto) 0.44 (0.30-0.82) K/mm3 Eos # (Auto) 0.00 L (0.04-0.54) K/mm3 Baso # (Auto) 0.00 L (0.01-0.08) K/mm3 Manual Slide Review Normal smear Sodium 141 (136-145) mEq/L Potassium 3.8 (3.5-5.1) mEq/L Chloride 106 (98-107) mEq/L Carbon Dioxide 23 (21-32) mEq/L Anion Gap 15.8 H (5-15) BUN 23 H (7-18) mg/dL Creatinine 0.9 (0.7-1.3) mg/dL Est Cr Clr Drug Dosing 84.49 mL/min Estimated GFR (MDRD) > 60 (>60) mL/min BUN/Creatinine Ratio 25.6 H (14-18) Glucose 100 (80-115) mg/dL Calcium 8.4 L (8.5-10.1) mg/dL Med Orders - Current: Current Medications Acetaminophen (Tylenol) 650 mg PO Q4H PRN PRN Reason: Pain (Mild 1-3)/fever Last Admin: 03/27/20 06:01 Dose: 650 mg Documented by: Adenosine (Adenocard) 6 - 12 mg IVPUSH Q1M PRN PRN Reason: Other Aspirin (Halfprin) 81 mg PO DAILY [facility] Last Admin: 03/29/20 09:26 Dose: 81 mg Documented by: Dexamethasone (Dexamethasone) 6 mg PO DAILY [facility] Stop: 04/04/20 09:01 Last Admin: 03/29/20 09:25 Dose: 6 mg Documented by: Enoxaparin Sodium (Lovenox) 40 mg SUBCUT Q24H [facility] Last Admin: 03/28/20 21:05 Dose: 40 mg Documented by: Remdesivir 100 mg/ Sodium (Chloride) 100 mls @ 100 mls/hr IV Q24H [facility] Stop: 03/30/20 09:59 Last Admin: 03/29/20 09:26 Dose: 100 mls/hr Documented by: Metoprolol Tartrate (Lopressor) 25 mg PO Q12H [facility] Last Admin: 03/29/20 09:21 Dose: 25 mg Documented by: Ondansetron HCl (Zofran) 4 mg IV Q4H PRN PRN Reason: Nausea/Vomiting Rosuvastatin Calcium (Crestor) 10 mg PO BEDTIME [facility] Last Admin: 03/28/20 20:56 Dose: 10 mg Documented by: Sodium Chloride (Saline Flush) 10 ml FLUSH ASDIRECTED PRN PRN Reason: Keep Vein Open Last Admin: 03/25/20 07:05 Dose: 10 ml Documented by: Discontinued Medications Adenosine (Adenocard) Confirm Administered Dose 6 mg .ROUTE .STK-MED ONE Stop: 03/25/20 07:06 Last Admin: 03/25/20 07:47 Dose: Not Given Documented by: Adenosine (Adenocard) Confirm Administered Dose 12 mg .ROUTE .STK-MED ONE Stop: 03/25/20 07:07 Last Admin: 03/25/20 07:47 Dose: Not Given Documented by: Adenosine (Adenocard) 6 mg IVPUSH NOW ONE Stop: 03/25/20 07:01 Last Admin: 03/25/20 07:05 Dose: 6 mg Documented by: Adenosine (Adenocard) 6 mg IVPUSH NOW ONE Stop: 03/25/20 09:02 Last Admin: 03/25/20 09:07 Dose: 6 mg Documented by: Adenosine (Adenocard) 6 mg IVPUSH Q1M PRN PRN Reason: Other Aspirin (Aspirin) 324 mg PO ONETIME ONE Stop: 03/25/20 08:10 Last Admin: 03/25/20 08:17 Dose: 324 mg Documented by: Aspirin (Halfprin) 81 mg PO DAILY [facility] Last Admin: 03/26/20 16:30 Dose: Not Given Documented by: Dexamethasone (Dexamethasone) 6 mg PO Q24H [facility] Stop: 04/04/20 12:01 Last Admin: 03/28/20 12:32 Dose: 6 mg Documented by: Enoxaparin Sodium (Lovenox) 40 mg SUBCUT Q24H [facility] Sodium Chloride (Normal Saline) 1,000 mls @ 1,000 mls/hr IV .BOLUS [facility] Last Admin: 03/25/20 07:44 Dose: 1,000 mls/hr Documented by: Sodium Chloride (Normal Saline) 1,000 mls @ 150 mls/hr IV ASDIRECTED [facility] Remdesivir 200 mg/ Sodium (Chloride) 250 mls @ 250 mls/hr IV ONETIME ONE Stop: 03/26/20 12:59 Last Admin: 03/26/20 11:50 Dose: 250 mls/hr Documented by: Remdesivir 100 mg/ Sodium (Chloride) 100 mls @ 100 mls/hr IV Q24H [facility] Stop: 03/28/20 12:59 Last Admin: 03/28/20 12:31 Dose: 100 mls/hr Documented by: Sodium Chloride (Normal Saline) Confirm Administered Dose 250 mls @ as directed .ROUTE .STK-MED ONE Stop: 03/26/20 13:20 Last Admin: 03/26/20 13:27 Dose: Not Given Documented by: Sodium Chloride (Normal Saline) 250 mls @ 25 mls/hr IV ONETIME ONE Stop: 03/26/20 23:29 Last Admin: 03/26/20 13:30 Dose: 25 mls/hr Documented by: Influenza Virus Vaccine (Fluzone High-Dose Quad ) 240 mcg IM .ONCE ONE Stop: 03/25/20 12:16 Magnesium Hydroxide (Milk Of Magnesia) 30 ml PO ONETIME ONE Stop: 03/28/20 20:01 Last Admin: 03/28/20 20:55 Dose: Not Given Documented by: Metoprolol Tartrate (Lopressor) 25 mg PO Q12H [facility] Last Admin: 03/26/20 16:29 Dose: Not Given Documented by: - Exam Quality Assessment: DVT Prophylaxis General: Alert, Oriented, Cooperative, No Acute Distress HEENT: Pupils Equal, Pupils Reactive, EOMI Neck: Supple, Trachea Midline, No JVD Lungs: Normal Respiratory Effort, Decreased Breath Sounds Cardiovascular: Regular Rate, Regular Rhythm GI/Abdominal Exam: Normal Bowel Sounds, Soft, Non-Tender, No Organomegaly, No Distention (Male) Exam: Deferred Back Exam: Normal Inspection Extremities: Normal Inspection, Normal Range of Motion, Non-Tender, No Pedal Edema, Normal Capillary Refill Skin: Warm, Dry Neurological: No New Focal Deficit, Normal Gait, Normal Speech Psy/Mental Status: Alert, Normal Affect, Normal Mood Sepsis Event Note - Evaluation Sepsis Screening Result: No Definite Risk - Focused Exam Vital Signs: Vital Signs Temp Pulse Resp BP Pulse Ox Pulse Ox 03/29/20 14:03 96 03/29/20 12:13 36.4 C 56 L 20 104/63 95 03/29/20 09:21 55 L 112/68 03/29/20 07:58 36.1 C 55 L 20 112/68 91 L 03/29/20 07:12 90 L 03/29/20 04:55 36.4 C 55 L 18 106/55 L 89 L - Problem List Review Problem List Initiated/Reviewed/Updated: Yes - My Orders Last 24 Hours: My Active Orders 03/29/20 13:46 Up ad Ewa [RC] ASDIRECTED 03/29/20 13:48 Communication Order [RC] QSHIFT 03/30/20 05:30 BASIC METABOLIC PANEL,BMP [CHEM] DAILY CBC WITH AUTO DIFF [HEME] DAILY 03/31/20 05:30 BASIC METABOLIC PANEL,BMP [CHEM] DAILY CBC WITH AUTO DIFF [HEME] DAILY 04/01/20 05:30 BASIC METABOLIC PANEL,BMP [CHEM] DAILY - Plan Plan:: Assessment 03/25/2020 54-year-old male presents with SVT likely secondary to COVID-19 infection. * Chest x-ray does not show significant pneumonia at this time. * Blood pressure does not appear to be able to tolerate significant beta-sarita at this time. * TSH is normal at 1.43, troponin elevated at 0.348, D-dimer 0.32, INR 1.05, PTT 28.2, ferritin 1739, LDH 210, proBNP 2063 Type II NC secondary to SVT. Demand ischemia. * Troponin 0 0.348, proBNP 2063 * EKG shows heart strain pattern Acute renal injury secondary to poor kidney perfusion due to SVT * No prior history of renal disease. * Estimated GFR 51, creatinine 1.4, BUN 25 Isolated mild elevation of bilirubin * Total bilirubin 1.2 03/26/2020 Severe COVID-19 infection with pneumonia PSVT * Increased shortness of breath and oxygen supplementation * Worsening chest x-ray consistent with Covid pneumonia. * D-dimer 0.32, C-reactive protein increased 7.6, WBC 4.8 * Requiring 1 L O2 * Echocardiogram: * 1. Left ventricular ejection fraction, by visual estimation, is 60 to 65%. * 2. Normal left ventricular systolic function * 3. Borderline concentric left ventricular hypertrophy * 4. Normal pattern of LV diastolic filling * 5. Mild mitral valve regurgitation * 6. Mild tricuspid valve regurgitation * 7. Mild dilatation of the ascending aorta * 8. The right ventricular systolic pressure is normal * 9. No regional wall motion abnormalities * No SVT noted since admission Type II NC * EKG with resolved ST depression * Improving troponin at 0.1 * Denies any chest pain Acute renal injuryresolved * Estimated GFR greater than 60, creatinine 1.1, BUN 20 Improving isolated elevation of bilirubin Plan * Strict isolation * Remdesivir (07/26), dexamethasone, and convalescent plasma * I spoke with Ken Pichardo to provide information about convalescent plasma. I offered the "fax sheet for patients and parents/caregivers, for COVID-19 convalescent plasma to read and review. I stated that therapy has been approved by an emergency use authorization process and has not fully been FDA reviewed or approved. I shared potential risks from the therapy including transmission of blood borne pathogen such as HIV and hepatitis C, allergic and transfusion related reactions, post transfusion purpura. Additionally theore tical risks include a phenomenon called antibodydependent enhancement of infection such as is seen in dengue or attenuation of an immune response that may make patients more susceptible to reinfection. * Metoprolol 25 mg twice daily; adjust as needed. * Aspirin 81 mg daily * Lipid panel * Crestor 10 mg daily * Repeat CBC, CMP, mag, phosphorus, BNP, D-dimer in the morning * VTE prophylaxis with Lovenox * CODE STATUS full code * Length of stay minimum of 5 additional days secondary to COVID-19 treatment. * DC anticipated on 03/30/2020 * PCP, 2 weeks after DC. * May require Cardiology OP consult and/or ekg monitor tech re: PSVT.
[2020-03-29] MEDS: Rosuvastatin 10 MG Tab PO SCH (21:27)
[2020-03-29] MEDS: Enoxaparin 40 MG/0.4 ML Syringe SUBCUT SCH (21:29)
--- NOTE | 2020-03-30 07:42 | PCM.DCSUM1 ---
Discharge Summary - Hospital Course Free Text/Narrative:: 64 year old male with flu like symptoms, diagnosed with Influenza A as well as Covid-19. He was hypoxic, and subsequently treated using Covid-a9 treatment including but not limited to Remdesicvir as well as Dexamethasone. e required admission to the the ICU initially. Also had several episodes of PSVT, which either broke spontaneously or required Adenosine. A 2D echo revealed no structural heart disease. The patient had a type II [place]; he will be DCd onn ASA, Lopressor, Crestor. A follow up appt with his PCP, Dr Lyons is anticipated. He has been instructed to quarantine for 7 days, and wear a mask if exposed to family or friends. A 48 hour Holter monitor has been applied prior to DC. Diagnosis: Stroke: No - Discharge Data Discharge Date: 03/30/20 Discharge Disposition: Home, Self-Care 01 Condition: Good - Referral to Home Health Primary Care Physician: PCP None - Discharge Diagnosis/Problem(s) (1) Acute renal injury SNOMED Code(s): 21170414, 21319063 ICD Code: N17.9 - ACUTE KIDNEY FAILURE, UNSPECIFIED Status: Acute Priority: Medium Current Visit: Yes (2) COVID-19 SNOMED Code(s): 877175025 ICD Code: U07.1 - COVID-19 Status: Acute Priority: High Current Visit: Yes (3) Elevated troponin SNOMED Code(s): 944851208, 636572183, 327577128 ICD Code: R77.8 - OTHER SPECIFIED ABNORMALITIES OF PLASMA PROTEINS Status: Acute Priority: Low Current Visit: Yes (4) Pneumonia due to COVID-19 virus SNOMED Code(s): 944463168070070514 ICD Code: U07.1 - COVID-19; J12.89 - OTHER VIRAL PNEUMONIA Status: Acute Priority: High Current Visit: Yes (5) SVT (supraventricular tachycardia) SNOMED Code(s): 9132502 ICD Code: I47.1 - SUPRAVENTRICULAR TACHYCARDIA Status: Acute Priority: Medium Current Visit: Yes (6) Type 2 myocardial infarction due to arrhythmia SNOMED Code(s): 47960624 ICD Code: I49.9 - CARDIAC ARRHYTHMIA, UNSPECIFIED; I21.A1 - MYOCARDIAL INFARCTION TYPE 2 Status: Acute Priority: Medium Current Visit: Yes (7) Influenza A SNOMED Code(s): 496031907 ICD Code: J10.1 - FLU DUE TO OTH IDENT INFLUENZA VIRUS W OTH RESP MANIFEST Status: Acute Priority: High Current Visit: No - Patient Summary/Data Hospital Course: See above in narrative section. - Patient Instructions Diet: Heart Healthy Diet Activity: As Tolerated, Rest and Relax Today Driving: May Drive Today Showering/Bathing: May Shower Notify Provider of: Fever, Increased Pain, Nausea and/or Vomiting - Discharge Plan *PRESCRIPTION DRUG MONITORING PROGRAM REVIEWED*: No *COPY OF PRESCRIPTION DRUG MONITORING REPORT IN PATIENT REX: No Prescriptions/Med Rec: Aspirin 81 mg PO DAILY 28 Days tab.chew Rosuvastatin [Crestor] 5 mg PO BEDTIME #30 tablet dexAMETHasone [Dexamethasone] 6 mg PO DAILY #3 tablet Metoprolol Tartrate [Lopressor] 50 mg PO Q12H #60 tablet Home Medications: Home Meds Acetaminophen [Tylenol] 650 mg PO Q4H PRN tablet 03/30/20 [Rx] Aspirin 81 mg PO DAILY 28 Days tab.chew 03/30/20 [Rx] Metoprolol Tartrate [Lopressor] 50 mg PO Q12H #60 tablet 03/30/20 [Rx] Rosuvastatin [Crestor] 5 mg PO BEDTIME #30 tablet 03/30/20 [Rx] dexAMETHasone [Dexamethasone] 6 mg PO DAILY #3 tablet 03/30/20 [Rx] Oxygen Therapy Mode: Room Air Patient Handouts: COVID-19 Frequently Asked Questions, COVID-19, Community- Acquired Pneumonia, Adult, [id number], Sepsis, Self Care, Adult Forms: ED Department Discharge Referrals: Clint Genao MD [Physician] - (Patient will need to establish care with Dr. Genao. Please call on wednesday and schedule an apt. [phone].) - Discharge Summary/Plan Comment DC Time >30 min.: No Discharge Summary/Plan Comment: Impression: PSVT Type II [place], demand ischemia Covid-19 PNA Influenza A Plan: Dexamethasone ASA Crestor Lopressor 50 mg BID; higher dose given, may take an additional 1/2 tab if HR is elevated. Thus dose is 25 mg every 12 hours but 50 mg tabs have been prescribed. Holter monitor 48 hour - General Info Date of Service: 03/25/20 Functional Status: Reports: Tolerating Diet, Ambulating, Urinating - Review of Systems General: Reports: No Symptoms HEENT: Reports: No Symptoms Pulmonary: Reports: No Symptoms Cardiovascular: Reports: No Symptoms Gastrointestinal: Reports: No Symptoms Genitourinary: Reports: No Symptoms Musculoskeletal: Reports: No Symptoms Skin: Reports: No Symptoms Neurological: Reports: No Symptoms Psychiatric: Reports: No Symptoms - Patient Data Vitals - Most Recent: Last Vital Signs Temp 36.6 C 03/30/20 04:52 Pulse 58 L 03/30/20 04:52 Resp 14 03/29/20 23:25 BP 103/86 03/30/20 04:52 Pulse Ox 90 L 03/30/20 04:52 Weight - Most Recent: 96.933 kg I&O - Last 24 hours: Intake & Output 03/29/20 03/30/20 03/30/20 22:59 06:59 14:59 Intake Total 920 850 Output Total 800 Balance 120 850 Lab Results - Last 24 hrs: Laboratory Results - last 24 hr 03/30/20 03/30/20 Range/Units 06:00 06:00 WBC 5.51 (4.23-9.07) K/mm3 RBC 4.53 L (4.63-6.08) M/mm3 Hgb 14.1 (13.7-17.5) gm/dl Hct 42.1 (40.1-51.0) % MCV 92.9 H (79.0-92.2) fl MCH 31.1 (25.7-32.2) pg MCHC 33.5 (32.2-35.5) g/dl RDW Std Deviation 39.6 (35.1-43.9) fL Plt Count 294 (163-337) K/mm3 MPV 11.4 (9.4-12.3) fl Neut % (Auto) 69.6 H (34.0-67.9) % Lymph % (Auto) 20.7 L (21.8-53.1) % [place] % (Auto) 9.1 (5.3-12.2) % Eos % (Auto) 0.2 L (0.8-7.0) Baso % (Auto) 0.2 (0.1-1.2) % Neut # (Auto) 3.84 (1.78-5.38) K/mm3 Lymph # (Auto) 1.14 L (1.32-3.57) K/mm3 [place] # (Auto) 0.50 (0.30-0.82) K/mm3 Eos # (Auto) 0.01 L (0.04-0.54) K/mm3 Baso # (Auto) 0.01 (0.01-0.08) K/mm3 Sodium 140 (136-145) mEq/L Potassium 4.0 (3.5-5.1) mEq/L Chloride 105 (98-107) mEq/L Carbon Dioxide 25 (21-32) mEq/L Anion Gap 14.0 (5-15) BUN 23 H (7-18) mg/dL Creatinine 0.9 (0.7-1.3) mg/dL Est Cr Clr Drug Dosing 84.49 mL/min Estimated GFR (MDRD) > 60 (>60) mL/min BUN/Creatinine Ratio 25.6 H (14-18) Glucose 100 (80-115) mg/dL Calcium 8.7 (8.5-10.1) mg/dL Med Orders - Current: Current Medications Acetaminophen (Tylenol) 650 mg PO Q4H PRN PRN Reason: Pain (Mild 1-3)/fever Last Admin: 03/27/20 06:01 Dose: 650 mg Documented by: Adenosine (Adenocard) 6 - 12 mg IVPUSH Q1M PRN PRN Reason: Other Aspirin (Halfprin) 81 mg PO DAILY [facility] Last Admin: 03/29/20 09:26 Dose: 81 mg Documented by: Dexamethasone (Dexamethasone) 6 mg PO DAILY [facility] Stop: 04/04/20 09:01 Last Admin: 03/29/20 09:25 Dose: 6 mg Documented by: Enoxaparin Sodium (Lovenox) 40 mg SUBCUT Q24H [facility] Last Admin: 03/29/20 21:29 Dose: 40 mg Documented by: Remdesivir 100 mg/ Sodium (Chloride) 100 mls @ 100 mls/hr IV Q24H [facility] Stop: 03/30/20 09:59 Last Admin: 03/29/20 09:26 Dose: 100 mls/hr Documented by: Metoprolol Tartrate (Lopressor) 25 mg PO Q12H [facility] Last Admin: 03/29/20 21:27 Dose: 25 mg Documented by: Ondansetron HCl (Zofran) 4 mg IV Q4H PRN PRN Reason: Nausea/Vomiting Rosuvastatin Calcium (Crestor) 10 mg PO BEDTIME [facility] Last Admin: 03/29/20 21:27 Dose: 10 mg Documented by: Sodium Chloride (Saline Flush) 10 ml FLUSH ASDIRECTED PRN PRN Reason: Keep Vein Open Last Admin: 03/25/20 07:05 Dose: 10 ml Documented by: Discontinued Medications Adenosine (Adenocard) Confirm Administered Dose 6 mg .ROUTE .STK-MED ONE Stop: 03/25/20 07:06 Last Admin: 03/25/20 07:47 Dose: Not Given Documented by: Adenosine (Adenocard) Confirm Administered Dose 12 mg .ROUTE .[facility]-MED ONE Stop: 03/25/20 07:07 Last Admin: 03/25/20 07:47 Dose: Not Given Documented by: Adenosine (Adenocard) 6 mg IVPUSH NOW ONE Stop: 03/25/20 07:01 Last Admin: 03/25/20 07:05 Dose: 6 mg Documented by: Adenosine (Adenocard) 6 mg IVPUSH NOW ONE Stop: 03/25/20 09:02 Last Admin: 03/25/20 09:07 Dose: 6 mg Documented by: Adenosine (Adenocard) 6 mg IVPUSH Q1M PRN PRN Reason: Other Aspirin (Aspirin) 324 mg PO ONETIME ONE Stop: 03/25/20 08:10 Last Admin: 03/25/20 08:17 Dose: 324 mg Documented by: Aspirin (Halfprin) 81 mg PO DAILY [facility] Last Admin: 03/26/20 16:30 Dose: Not Given Documented by: Dexamethasone (Dexamethasone) 6 mg PO Q24H [facility] Stop: 04/04/20 12:01 Last Admin: 03/28/20 12:32 Dose: 6 mg Documented by: Enoxaparin Sodium (Lovenox) 40 mg SUBCUT Q24H [facility] Sodium Chloride (Normal Saline) 1,000 mls @ 1,000 mls/hr IV .BOLUS [facility] Last Admin: 03/25/20 07:44 Dose: 1,000 mls/hr Documented by: Sodium Chloride (Normal Saline) 1,000 mls @ 150 mls/hr IV ASDIRECTED [facility] Remdesivir 200 mg/ Sodium (Chloride) 250 mls @ 250 mls/hr IV ONETIME ONE Stop: 03/26/20 12:59 Last Admin: 03/26/20 11:50 Dose: 250 mls/hr Documented by: Remdesivir 100 mg/ Sodium (Chloride) 100 mls @ 100 mls/hr IV Q24H [facility] Stop: 03/28/20 12:59 Last Admin: 03/28/20 12:31 Dose: 100 mls/hr Documented by: Sodium Chloride (Normal Saline) Confirm Administered Dose 250 mls @ as directed .ROUTE .STK-MED ONE Stop: 03/26/20 13:20 Last Admin: 03/26/20 13:27 Dose: Not Given Documented by: Sodium Chloride (Normal Saline) 250 mls @ 25 mls/hr IV ONETIME ONE Stop: 03/26/20 23:29 Last Admin: 03/26/20 13:30 Dose: 25 mls/hr Documented by: Influenza Virus Vaccine (Fluzone High-Dose Quad ) 240 mcg IM .ONCE ONE Stop: 03/25/20 12:16 Magnesium Hydroxide (Milk Of Magnesia) 30 ml PO ONETIME ONE Stop: 03/28/20 20:01 Last Admin: 03/28/20 20:55 Dose: Not Given Documented by: Metoprolol Tartrate (Lopressor) 25 mg PO Q12H [facility] Last Admin: 03/26/20 16:29 Dose: Not Given Documented by: - Exam Quality Assessment: Reports: DVT Prophylaxis General: Reports: Alert, Oriented, Cooperative, No Acute Distress HEENT: Reports: Pupils Equal, Pupils Reactive, EOMI Neck: Reports: Trachea Midline, No JVD Lungs: Reports: Clear to Auscultation, Normal Respiratory Effort Cardiovascular: Reports: Regular Rate, Regular Rhythm GI/Abdominal Exam: Normal Bowel Sounds, Soft, Non-Tender, No Organomegaly, No Distention (Male) Exam: Deferred Rectal (Males) Exam: Deferred Back Exam: Reports: Normal Inspection Extremities: Normal Inspection, Normal Range of Motion, Non-Tender, Normal Ca pillary Refill Skin: Reports: Warm Wound/Incisions: Reports: Healing Well Neurological: Reports: No New Focal Deficit Psy/Mental Status: Reports: Alert, Normal Affect, Normal Mood
[2020-03-30 09:12] VITALS: BP 117/62
[2020-03-30] MEDS: REMDESIVIR (EUA) 100 MG in Sodium Chloride 0.9% 100 ML IV SCH (09:13)
[2020-03-30] MEDS: Aspirin 81 MG Tab.EC PO SCH (09:13)
[2020-03-30] MEDS: Metoprolol Tartrate 25 MG Tab PO SCH (09:13)
[2020-03-30] MEDS: Dexamethasone 4 MG Tab PO SCH (09:14)
[2020-03-30 09:32] VITALS: PULSE 54
== END 2020-03-30 12:08 | disposition home or self-care (01) | DRG 177 ==
LOC: JD.ED 06:53 → JD.ICU 11:36 → JD.MS 03-26 20:36
PROVIDERS: ADMIT Family Medicine; ATTEND Family Medicine
PROC: 8E0ZXY6 Isolation (ICD-10-PCS; 2020-03-26)
PROC: XW033E5 Introduction of Remdesivir Anti-infective into Peripheral Vein, Percutaneous Approach, New Technology Group 5 (ICD-10-PCS; 2020-03-26)
PROC: XW13325 Transfusion of Convalescent Plasma (Nonautologous) into Peripheral Vein, Percutaneous Approach, New Technology Group 5 (ICD-10-PCS; 2020-03-26)
PROC: 3E02340 Introduction of Influenza Vaccine into Muscle, Percutaneous Approach (ICD-10-PCS; principal; 2020-03-30)
DX: U07.1 COVID-19 (principal); I21.A1 Myocardial infarction type 2; J12.89 Other viral pneumonia; J10.00 Influenza due to other identified influenza virus with unspecified type of pneumonia; I47.1 Supraventricular tachycardia; N17.9 Acute kidney failure, unspecified; I08.1 Rheumatic disorders of both mitral and tricuspid valves; Z23 Encounter for immunization; I40.0 Infective myocarditis; H91.90 Unspecified hearing loss, unspecified ear; H54.7 Unspecified visual loss; G89.29 Other chronic pain; E55.9 Vitamin D deficiency, unspecified; Z96.659 Presence of unspecified artificial knee joint; M54.9 Dorsalgia, unspecified
CPT/HCPCS: 36415; 71045; 80053; 82728; 83605; 83615; 83735; 83880; 84443; 84484; 85025; 85379; 85610; 85730; 86140; 93005 ×3; 96374; 96376; 99285; A9270; J0153 ×2; J7030; U0002; 36430; 36600; 80048; 80061; 82803; 84100; 86900; 86901; 90662; 93010; 93225; 93226; 93306; 94667; 94668; 94760; 94761; 94762; G0008; J1650; J7050; J8540; P9017

== ENCOUNTER 2020-11-06 14:19 | Emergency (ER) | payer MEDICARE, OTHER ==
[2020-11-06 14:37] VITALS: BP 135/93; PULSE 64
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
--- NOTE | 2020-11-06 16:38 | CR ---
Left wrist: 4 views of the left wrist were obtained. Comparison: No prior left wrist study is available. Severe joint space narrowing is seen between the radius and navicular bone as well as lesser joint space narrowing between the radius and lunate bone. Small calcification is noted between the carpal bones within the mid carpal row on the ulnar side. Joint space narrowing and osteophytes are noted within the CMC joint of the thumb. Small metallic foreign body within the soft tissue of the thumb is noted at the level of the mid metacarpal which most likely is old. No acute fracture or dislocation is seen. Impression: 1. Degenerative change as noted above. 2. Small metallic foreign body as noted above. 3. Nothing acute is seen. Diagnostic code #2
== END 2020-11-06 16:30 | disposition home or self-care (01) ==
LOC: JD.ED 14:19
DX: G56.02 Carpal tunnel syndrome, left upper limb (principal); E66.9 Obesity, unspecified; Z68.30 Body mass index [BMI] 30.0-30.9, adult; Z86.16 Personal history of COVID-19; Z87.891 Personal history of nicotine dependence; Z79.899 Other long term (current) drug therapy
CPT/HCPCS: 73110-26-LT; 73110-LT; 99283

== ENCOUNTER 2021-06-11 14:44 | Emergency (ER) | payer MEDICARE, OTHER ==
[2021-06-11] MEDS ORDERED: Adenosine 6 MG/2 ML SDV ONE (14:47)
[2021-06-11] MEDS ORDERED: Adenosine 12 MG/4 ML SDV ONE (14:47)
[2021-06-11] MEDS ORDERED: Adenosine 6 MG/2 ML SDV IVPUSH STA (14:53)
[2021-06-11] MEDS ORDERED: Adenosine 12 MG/4 ML SDV IVPUSH STA (14:55)
[2021-06-11] MEDS ORDERED: Diltiazem 100 MG AdvVial ONE (14:57)
[2021-06-11] MEDS: Adenosine 6 MG/2 ML SDV IVPUSH STA (14:57)
[2021-06-11] MEDS ORDERED: Sodium Chloride 0.9% 100 ML ONE (14:57)
[2021-06-11] MEDS ORDERED: Diltiazem 50 MG/10 ML SDV IVPUSH ONE (15:02)
[2021-06-11] MEDS ORDERED: Diltiazem 50 MG/10 ML SDV ONE (15:04)
[2021-06-11] MEDS ORDERED: Sodium Chloride 0.9% 1,000 ML IV SCH (15:15)
[2021-06-11] MEDS ORDERED: Diltiazem 100 MG in Sodium Chloride 0.9% 100 ML IV SCH (15:15)
[2021-06-11] MEDS ORDERED: Diltiazem 120 MG Cap.CD PO ONE (15:57)
[2021-06-11 16:38] VITALS: BP 101/68; PULSE 67
[2021-06-12] MEDS: Adenosine 6 MG/2 ML SDV IVPUSH STA (08:32)
== END 2021-06-11 18:12 | disposition home or self-care (01) ==
LOC: JD.ED 14:44
DX: I47.1 Supraventricular tachycardia (principal); E66.9 Obesity, unspecified; Z68.33 Body mass index [BMI] 33.0-33.9, adult
CPT/HCPCS: 36415; 71045; 80053; 82553; 83735; 83880; 84443; 84484; 85025; 85610; 85730; 86140; 93005; 96365; 96366; 96375; 99285; A9270; J0153; J3490; J7030

== ENCOUNTER 2023-09-28 08:56 | Emergency (ER) | payer MEDICARE, OTHER ==
[2023-09-28] MEDS: Sodium Chloride 0.9% 10 ML Syringe FLUSH PRN (09:57)
[2023-09-28] MEDS: Ondansetron 4 MG/2 ML SDV IVPUSH ONE (09:57)
[2023-09-28] MEDS: HYDROmorphone 0.5 MG/0.5 ML Syringe IVPUSH ONE (09:58)
[2023-09-28] MEDS: Sodium Chloride 0.9% 1,000 ML IV SCH (09:58)
[2023-09-28 10:01] LABS: BASOPHILS ABSOLUTE AUTO 0.1 K/mm3 (0.0-0.2); BASOPHILS PERCENT AUTO 0.5 % (0.0-1.0); EOSINOPHILS ABSOLUTE AUTO 0.1 K/mm3 (0.0-0.4); EOSINOPHILS PERCENT AUTO 0.4 % (0.0-6.0); HEMATOCRIT 44.7 % (42.0-52.0); HEMOGLOBIN 15.2 gm/dl (14.0-18.0); IMMATURE GRAN ABSOLUTE AUTO 0.05 K/mm3 (0.00-0.05); IMMATURE GRAN PERCENT AUTO 0.4 % (0.0-0.4); LYMPHOCYTES ABSOLUTE AUTO 1.5 K/mm3 (1.0-4.8); LYMPHOCYTES PERCENT AUTO 11.3 % (24.0-44.0); MEAN CORPUSCULAR HEMOGLOBIN 31.9 pg (28.0-32.0); MEAN CORPUSCULAR VOLUME 93.9 fl (83.0-99.0); MONOCYTES ABSOLUTE AUTO 1.2 K/mm3 (0.0-0.8); MONOCYTES PERCENT AUTO 9.1 % (0.0-8.0); NEUTROPHILS ABSOLUTE AUTO 10.3 K/mm3 (1.8-7.7); NEUTROPHILS PERCENT AUTO 78.3 % (41.0-71.0); PLATELET COUNT,PLT 279 K/mm3 (150-400); RED BLOOD CELL COUNT 4.76 M/mm3 (4.52-5.90); WHITE BLOOD CELL COUNT,WBC 13.08 K/mm3 (3.9-11.3)
[2023-09-28 10:18] LABS: A/G RATIO 0.8 (1-2); ALBUMIN 3.3 g/dl (3.4-5.0); ANION GAP 17.1 (5-15); BUN/CREATININE RATIO 18.2 (14-18); C-REACTIVE PROTEIN 18.2 mg/dL (<0.30); CALCIUM 9.4 mg/dL (8.5-10.1); CREATININE 1.1 mg/dL (0.7-1.3); EST CRCL DRUG DOSING (CG) 65.44 mL/min; POTASSIUM,K 4.1 mEq/L (3.5-5.1); PROTEIN TOTAL,TP 7.3 g/dl (6.4-8.2)
[2023-09-28] MEDS: Iopamidol 612 MG/ML 30 ML SDV IVPUSH ONE (10:28)
[2023-09-28 12:23] VITALS: BP 118/66; PULSE 53
== END 2023-09-28 12:19 | disposition home or self-care (01) ==
LOC: JD.ED 08:56 → SUPCPDRO 08:56 → JD.ED 12:19
DX: K52.9 Noninfective gastroenteritis and colitis, unspecified (principal); E66.9 Obesity, unspecified; Z68.30 Body mass index [BMI] 30.0-30.9, adult; Z79.82 Long term (current) use of aspirin; Z79.899 Other long term (current) drug therapy; Z79.84 Long term (current) use of oral hypoglycemic drugs; Z86.16 Personal history of COVID-19
CPT/HCPCS: 36415; 71045; 74177; 80053; 83690; 84484; 85025; 86140; 93005; 96361; 96374; 96375; 99284; J1170; J2405; J3490; J7030; Q9967; 93010

== ENCOUNTER 2024-06-15 06:51 | Day surgery (SDC) | payer MEDICARE, OTHER ==
[2024-06-15] MEDS ORDERED: Sodium Chloride 0.9% 10 ML Syringe FLUSH SCH (07:00)
[2024-06-15] MEDS ORDERED: Sodium Chloride 0.9% 10 ML Syringe FLUSH PRN (07:00)
[2024-06-15] MEDS ORDERED: Propofol 200 MG/20 ML SDV ONE ×3 (07:03→07:41)
[2024-06-15] MEDS: Lactated Ringers 1,000 ML IV SCH (07:10)
[2024-06-15] MEDS ORDERED: Ondansetron 4 MG/2 ML SDV IVPUSH PRN (07:15)
[2024-06-15] MEDS ORDERED: HYDROmorphone 0.5 MG/0.5 ML Syringe IVPUSH PRN (07:15)
[2024-06-15 08:13] VITALS: BP 91/65; PULSE 56
== END 2024-06-15 08:35 | disposition home or self-care (01) ==
LOC: JD.SDS 06:51
PROVIDERS: ATTEND Surgery
DX: Z12.11 Encounter for screening for malignant neoplasm of colon (principal); D12.8 Benign neoplasm of rectum; K57.30 Diverticulosis of large intestine without perforation or abscess without bleeding; K64.8 Other hemorrhoids; I48.91 Unspecified atrial fibrillation; I50.9 Heart failure, unspecified; Z79.01 Long term (current) use of anticoagulants; Z79.899 Other long term (current) drug therapy
CPT/HCPCS: 45380; J2704; J7120; 00811